=== PATIENT | male | born 1960 | race Caucasian/White ===

== ENCOUNTER 2019-11-19 14:14 | Outpatient (CLI) | payer BC, SELFPAY ==
--- NOTE | 2019-11-22 11:30 | WPDPFTINT ---
PFT Interpretation PFT Interpretation: This PFT met all criteria for ATS standards and reproducibility FEV/FVC post bronchodilator 81% of predicted FEV1 130% FVC 115% TLC 133% or 8.87 liters RV 148% RV/TLC 39% DLCO 113% when adjusted for alveolar volume but not adjusted for hemoglobin Flow volume loops were normal Impression: Hyperinflation and borderline air trapping. This pattern may correlate with Emphysema or other lung disease which maybe mild. Clinical correlation is advised.
== END 2019-11-19 14:15 | disposition home or self-care (01) ==
PROVIDERS: PCP Internal Medicine; Visit Provider Internal Medicine
DX: Z87.891 Personal history of nicotine dependence (principal); R91.8 Other nonspecific abnormal finding of lung field
CPT/HCPCS: 94060; 94726; 94729

== ENCOUNTER → 2020-06-15 12:19 | Outpatient (CLI) | payer BC, SELFPAY ==
--- NOTE | ~2020-06-15 | MR_ITS ---
EXAMINATION: MR shoulder RT wo con DATE: 06/15/2020 12:57 INDICATION: Right shoulder pain TECHNIQUE: Magnetic resonance imaging (MRI) of the right shoulder was performed without intravenous c ontrast. Sequences included axial PD-weighted FS FSE, coronal oblique PD-weighted FS FSE, coronal obl ique T2-weighted FS FSE, sagittal PD-weighted FS FSE, and sagittal T1-weighted SE. COMPARISON: None. FINDINGS: Coracoacromial arch: The acromion undersurface is curved in morphology (type II). The coracoacromial ligament is normal. M ild acromioclavicular osteoarthritis. Rotator cuff: Mild supraspinatus tendinopathy without discrete tear. The infraspinatus, teres minor and subscapular is tendons are normal. Normal rotator cuff muscle bulk and signal. Biceps tendon, glenoid labrum and glenohumeral cartilage: Mild tendinopathy without discrete tear of the intra-articular long head biceps tendon. There is a te ar of the superior to posterior inferior glenoid labrum with a couple small para labral cyst at the 1 1:00 and 7:00 positions. Linear increased signal at the chondral labral junction of the posterior sup erior glenoid suggesting associated chondral tear versus chondral labral delamination. Nonuniform par tial thickness cartilage loss with chondral surface irregularity along the glenoid and humeral head c onsistent with mild osteoarthritis. There are small marginal osteophytes along the inferomedial aspec t of the humeral head. Fluid: Physiologic amount fluid in the glenohumeral joint space with mild synovitis versus debris at the axi llary recess. No loose osteochondral bodies. Disproportionate small amount of fluid in the long head biceps tendon sheath consistent with mild tenosynovitis. Abnormal increased fluid signal in the subac romial/subdeltoid bursa to suggest bursitis. Bones: Bone alignment is normal. No fracture or pathologic marrow replacing process. Mild cystic change at t he greater tuberosity. IMPRESSION: 1. Mild glenohumeral osteoarthritis with tear of the superior to posterior inferior glenoid labrum. 2. Mild supraspinatus tendinopathy without discrete tear. 3. Mild bicipital tenosynovitis and mild tendinopathy of the intra-articular long head biceps tendon without discrete tear. 4. Mild acromioclavicular osteoarthritis. Reviewed, dictated and finalized at location A. IMPRESSION: 1. Mild glenohumeral osteoarthritis with tear of the superior to posterior infe rior glenoid labrum. 2. Mild supraspinatus tendinopathy without discrete tear. 3. Mild bicipital tenosynovitis and mild tendinopathy of the intra-articular lo ng head biceps tendon without discrete tear. 4. Mild acromioclavicular osteoarthritis.
== END ==
PROVIDERS: PCP Internal Medicine; Visit Provider Orthopaedic Surgery
DX: M19.011 Primary osteoarthritis, right shoulder (principal); M75.21 Bicipital tendinitis, right shoulder
CPT/HCPCS: 73221

== ENCOUNTER 2021-05-20 08:15 | Outpatient (CLI) | payer BC, SELFPAY ==
--- NOTE | ~2021-05-20 | XR_ITS ---
EXAMINATION: XR UGIAC w barium swallow DATE: 05/20/2021 08:52 INDICATION: Gastroesophageal reflux disease TECHNIQUE: The patient drank thick barium, gas-producing crystals, and thin barium. Fluoroscopy of th e esophagus, stomach, and proximal small bowel were performed. Fluoroscopy exposure time was 2.6 da diomedes. The DAP for this procedure was 21.241 Gycm2. COMPARISON: None. FINDINGS: There is no mass or stricture of the esophagus. Esophageal motility is normal. There is no hiatal hernia. There was no gastroesophageal reflux with provocative maneuvers. The stomach and proxi mal small bowel show normal folding patterns. IMPRESSION: 1. Unremarkable upper GI. Reviewed, dictated and finalized at location A. IMPRESSION: 1. Unremarkable upper GI.
== END 2021-05-20 08:16 | disposition home or self-care (01) ==
PROVIDERS: PCP Internal Medicine; Visit Provider Nurse Practitioner
DX: K21.9 Gastro-esophageal reflux disease without esophagitis (principal)
CPT/HCPCS: 74246

== ENCOUNTER 2021-09-07 09:35 | Outpatient (RCR) | payer BC, SELFPAY ==
[2021-09-07] MEDS: FAMOTIDINE 20 MG TABLET PO (15:59)
[2021-09-07] MEDS: ACETAMINOPHEN 325 MG TABLET 650 MG PO (15:59)
[2021-09-07] MEDS: diphenhydrAMINE HCl CAP 25 MG CAPSULE PO (15:59)
[2021-09-07 16:05] VITALS: BP 145/60; PULSE 60; RESP 20; TEMP 36.9; O2SAT 98
[2021-09-07 17:32] VITALS: BP 122/84
--- NOTE | 2021-09-08 09:58 | PC.NURSE ---
Called Mr Ortiz and he stated he is doing great and has no questions at this time.
== END 2021-09-07 17:00 | disposition home or self-care (01) ==
LOC: AMCINF 09:35
PROVIDERS: PCP Internal Medicine; Visit Provider Internal Medicine Hematology & Oncology
DX: U07.1 COVID-19 (principal); I10 Essential (primary) hypertension
CPT/HCPCS: A9270; M0245; Q0245

== ENCOUNTER 2023-09-29 14:45 | Outpatient (CLI) | payer BC, SELFPAY ==
--- NOTE | 2023-10-06 15:52 | WPDHOLTEREM ---
Holter/Event Monitor Holter/Event Monitor Date of procedure: 09/29/23 Holter/Event Procedure: 48 Hr Holter Monitor Indications: Palpitations Conclusion: 1. 48 hour holter monitor on 09/29/23. 2. Underlying rhythm is sinus rhythm. HR range 47-117 bpm; average HR 68 bpm. 3. There are 43 premature supraventricular complexes. No supraventricular tachycardia. 4. There are 2,130 premature ventricular complexes, 480 ventricular trigeminy. No ventricular tachycardia. 5. No sinoatrial or atrioventricular blocks. No significant pauses greater than 2 seconds. 6. Patient reports symptoms of no energy and heavy heart beats which demonstrate sinus rhythm, HR range 65-84 bpm.
== END 2023-09-29 14:46 | disposition home or self-care (01) ==
PROVIDERS: PCP Nurse Practitioner; Visit Provider Nurse Practitioner
DX: R00.2 Palpitations (principal)
CPT/HCPCS: 93225; 93226

== ENCOUNTER 2023-10-24 09:52 | Outpatient (CLI) | payer BC, SELFPAY ==
--- NOTE | 2023-10-24 11:00 | NEURO_ITS ---
Impression: # Complains of right hand numbness. Not diabetic. ? # Evolving right Carpal Tunnel Syndrome. ? # No ulnar neuropathy. ? # Normal needle/EMG exam. Nerve Conduction Studies Anti Sensory Summary Table Stim Site NR Peak (ms) P-T Amp (?V) Site1 Site2 Delta-P (ms) Dist (cm) Geoff (m/s) Right Median Anti Sensory (2-3nd Digit) Wrist 3.9 38.3 Wrist 2-3nd Digit 3.9 14.0 36 Wrist 3.9 33.7 Wrist 2-3nd Digit 3.9 14.0 36 Right Radial Anti Sensory (Base 1st Digit) Wrist 1.8 13.4 Wrist Base 1st Digit 1.8 0.0 Right Ulnar Anti Sensory (5th Digit) Wrist 2.6 21.6 Wrist 5th Digit 2.6 14.0 54 Motor Summary Table Stim Site NR Onset (ms) O-P Amp (mV) Site1 Site2 Delta-0 (ms) Dist (cm) Geoff (m/s) Right Median Motor (Abd Poll Brev) Wrist 3.9 5.6 Elbow Wrist 4.9 29.0 59 Elbow 8.8 4.9 Right Ulnar Motor (Abd Dig Minimi) Wrist 2.7 6.3 A Elbow Wrist 5.2 30.0 58 A Elbow 7.9 4.9 F Wave Studies NR F-Lat (ms) L-R F-Lat (ms) Right Median (Mrkrs) (Abd Poll Brev) 29.79 Right Ulnar (Mrkrs) (Abd Dig Min) 30.14 EMG Side Muscle Nerve Root Ins Act Fibs Amp Dur Recrt Comment Right 1stDorInt Ulnar C8-T1 Nml Nml Nml Nml Nml Right Ext Indicis Radial (Post Int) C7-8 Nml Nml Nml Nml Nml Right Ext Digitorum Radial (Post Int) C7-8 Nml Nml Nml Nml Nml Right BrachioRad Radial C5-6 Nml Nml Nml Nml Nml Right PronatorTeres Median C6-7 Nml Nml Nml Nml Nml Right Abd Poll Brev Median C8-T1 Nml Nml Nml Nml Nml Right ABD Dig Min Ulnar C8-T1 Nml Nml Nml Nml Nml MTDD
== END 2023-10-24 09:53 | disposition home or self-care (01) ==
LOC: ANHNEURO 09:55
PROVIDERS: PCP Nurse Practitioner; Visit Provider Nurse Practitioner
DX: M79.609 Pain in unspecified limb (principal); G56.01 Carpal tunnel syndrome, right upper limb
CPT/HCPCS: 95886; 95909

== ENCOUNTER 2024-11-18 13:52 | Outpatient (CLI) | payer BC, SELFPAY | END 2024-11-18 13:53 | disposition home or self-care (01) | PROVIDERS: PCP Internal Medicine; Visit Provider Internal Medicine | DX: K21.9 Gastro-esophageal reflux disease without esophagitis (principal) | CPT/HCPCS: 74240 ==

== ENCOUNTER 2024-12-20 00:48 | Day surgery (SDC) | payer OTHER, SELFPAY ==
[2024-12-12 14:46] VITALS: BMI 33.2
--- OUTSIDE RECORDS SUMMARY | 2024-12-20 00:52 | XMS_ITS ---
Author Organization [facility] Address [address] [facility] [address] [place] [address] Care Team Providers Care Pastry Baker Name Role Phone Carlos Ibarra DO Primary Care Provider Geovanny Radford Unavailable [phone] Allergies Allergen (clinical drug ingredient) Drug/Non Drug Allergy documented on EMR Reaction Allergy Type Onset Date Status predniSONE Unknown Drug Allergy 01/31/2024 Activ e Results Component Value Reference Range Notes UDT Reviewed date:04/29/2024 10:06:51 AM Interpretation: Performing Lab: Notes/Report: THC N 0 - 50 ng/ml Cocaine N 0 - 300 ng/ml Amphetamine N 0 - 1000 ng/ml Buprenorphine (BUP) N 0 - 10 ng/ml Secobarbital (Bar) N 0 - 300 ng/ml Oxazepam (BZO) N 0 - 300 ng/ml 6-anvtkidzpy-0,4-dfzrguyb-5,3-diphenylpyrrolidine (MARNI P) N 0 - 300 ng/ml Methamphetamine (MET) N 0 - 1000 ng/ml Methylenedioxymethamphetamine (MDMA) N 0 - 500 ng/ml Morphine (MOP 300/CSU0354) N 0 - 300 ng/ml Methadone (MTD) N 0 - 300 ng/ml Phencyclidine (PCP) N 0 - 25 ng/ml Nortriptyline (TCA) N 0 - 1000 ng/ml Oxycodone N 0 - 300 ng/ml x N 0 - 300 ng/ml REASON FOR VISIT follow up visit, medication evaluation Medications Medication SIG (Take, Route, Frequency, Duration) Notes Start Date End Date Status Rosuvastatin Calcium 20 MG TAKE 1 TABLET BY MOUTH EVERYDAY AT BEDTIME Oral for 90 Days Active Ezetimibe 10 MG TAKE 1 TABLET (10 MG ) BY MOUTH DAILY. Oral for 90 Days Active Nystatin-Triamcinolone 077451-1.1 UNIT/GM APPLY TO AFFECTED AREA TWICE A DAY NEEDED External for 15 Days Active amLODIPine Besylate 10 MG TAKE 1 TABLET BY MOUTH EVERY DAY Oral for 90 Days Active carBAMazepine ER 100 MG 1 tablet Orally once a day for 90 days Total dose 300 mg daily 04/29/2024 Active carBAMazepine ER 200 MG 1 tablet every night Orally once a day for 90 days Total dose 300 mg daily Active Social History Tobacco Use: Social History Observation Description Date Details (start date - stop date) Never Smoker NA - NA Sex Assigned At : Social History Observation Description Sex Assigned At Male Tobacco Control (Standard) Question Answer Notes Tobacco use: Nonsmoker Problems Problem Type SNOMED Code ICD Code Onset Dates Problem Status W/U Status Risk Notes Problem 78217520 Chronic fatigue (R53.82) Active confirmed Vital Signs Blood pressure systolic 161 mm Hg 04/29/20 24 Blood pressure diastolic 95 mm Hg 024 Heart Rate 56 /min 04/29/2024 Height 70 in 04/29/2024 Weight 233.2 lbs 04/29/2024 BMI 33.46 kg/m2 04/29/2024 Height-cm 177.8 cm 04/29/2024 Weight-kg 105.78 kg 04/29/2024 Encounters Encounter Location Date Provider Diagnosis [facility] [address] [address] 04/29/2024 Geovanny Gutierrez Bipolar disorder, currently in remission, most recent episode unspecified F31.70 and Chronic fatigue R53.82 Assessments Encounter Date Diagnosis (ICD Code) Assessment Notes Treatment Notes Treatment Clinical Notes Section Notes 04/29/2024 Bipolar disorder, currently in remission, most recent episode unspecified (ICD-10 - F31.70) Bipolar Disorder - Assessment: Bipolar disorder is currently in remission. - Plan: - Continue carbamazepine ER 200 mg nightly. - Re-send prescription for carbamazepine ER 100 mg once a day; patient may choose to add the extra 100 mg at night. - Schedule a follow-up appointment in three months. Daytime Sleepiness and Low Energy - Assessment: Patient reports daytime sleepiness and low energy despite regular exercise. - Plan: - Encourage patient to structure their day and engage in regular exercise. - Recommend discussing chronic fatigue with primary care physician. - Consider modafinil as a potential treatment option for motivation and energy if lifestyle changes are insufficient. Sleep Apnea - Assessment: Patient has a previous diagnosis of sleep apnea but discontinued CPAP use years ago. does not report observing gasping for breath during sleep. - Plan: - Encourage patient to consult with primary care physician or sleep specialist for re-evaluation and potential treatment options. - If needed, Dr. Gutierrez can prescribe modafinil for daytime sleepiness related to sleep apnea. Anxiety - Assessment: Patient reports anxiety related to lack of daily structure and political concerns. - Plan: - Encourage patient to implement lifestyle changes, such as structuring their day and engaging in hobbies or activities. - Re-evaluate anxiety levels during the three-month follow-up appointment. 04/29/2024 Chronic fatigue (ICD-10 - R53.82) Bipolar Disorder - Assessment: Bipolar disorder is currently in remission. - Plan: - Continue carbamazepine ER 200 mg nightly. - Re-send prescription for carbamazepine ER 100 mg once a day; patient may choose to add the extra 100 mg at night. - Schedule a follow-up appointment in three months. Daytime Sleepiness and Low Energy - Assessment: Patient reports daytime sleepiness and low energy despite regular exercise. - Plan: - Encourage patient to structure their day and engage in regular exercise. - Recommend discussing chronic fatigue with primary care physician. - Consider modafinil as a potential treatment option for motivation and energy if lifestyle changes are insufficient. Sleep Apnea - Assessment: Patient has a previous diagnosis of sleep apnea but discontinued CPAP use years ago. does not report observing gasping for breath during sleep. - Plan: - Encourage patient to consult with primary care physician or sleep specialist for re-evaluation and potential treatment options. - If needed, Dr. Gutierrez can prescribe modafinil for daytime sleepiness related to sleep apnea. Anxiety - Assessment: Patient reports anxiety related to lack of daily structure and political concerns. - Plan: - Encourage patient to implement lifestyle changes, such as structuring their day and engaging in hobbies or activities. - Re-evaluate anxiety levels during the three-month follow-up appointment. 04/29/2024 Other Learning About Depression Screening material was printed Bipolar Disorder - Assessment: Bipolar disorder is currently in remission. - Plan: - Continue carbamazepine ER 200 mg nightly. - Re-send prescription for carbamazepine ER 100 mg once a day; patient may choose to add the extra 100 mg at night. - Schedule a follow-up appointment in three months. Daytime Sleepiness and Low Energy - Assessment: Patient reports daytime sleepiness and low energy despite regular exercise. - Plan: - Encourage patient to structure their day and engage in regular exercise. - Recommend discussing chronic fatigue with primary care physician. - Consider modafinil as a potential treatment option for motivation and energy if lifestyle changes are insufficient. Sleep Apnea - Assessment: Patient has a previous diagnosis of sleep apnea but discontinued CPAP use years ago. does not report observing gasping for breath during sleep. - Plan: - Encourage patient to consult with primary care physician or sleep specialist for re-evaluation and potential treatment options. - If needed, Dr. Gutierrez can prescribe modafinil for daytime sleepiness related to sleep apnea. Anxiety - Assessment: Patient reports anxiety related to lack of daily structure and political concerns. - Plan: - Encourage patient to implement lifestyle changes, such as structuring their day and engaging in hobbies or activities. - Re-evaluate anxiety levels during the three-month follow-up appointment. Plan Of Treatment Medication Medication Name Sig Start Date Stop Date Notes carBAMazepine ER 100 MG 1 tablet Orally once a day for 90 days 04/29/2024 carBAMazepine ER 200 MG 1 tablet every n ight Orally once a day for 90 days Treatment Notes Assessment Notes Other Learning About Depre ssion Screening material was printed Next Appt Details Follow Up: 3 Months, Reason: Provider Name:Geovanny Gutierrez , 03/24/2025 08:30:00 AM, [address] [facility] [address] [facility] [address], [facility] [address], [place], [address], Progress Notes * BEATRIS WALSHDOB: 0 (63 yo M)Acc No.[id number]:04/29/2024 Patient: BEATRIS ECHOLS Provider: Shama GUTIERREZ MD :1960 A ge:63 Y S ex:Male Date:04/29/2024 Address: [address], [address] [id number] Subjective: * Chief Complaints: * F ollow up visit, medication evaluation * HPI: D epression screening: Chief Complaint: Beatris, a 63-year-old retired male with a history of bipolar disorder, reports concerns about possibly experiencing hypomania. He notes changes in his medication regimen, excessive daytime sleepiness, and a lack of motivation and productivity. He denies feeling depressed currently. The note is transcribed using speech recognition software. It is a reflection of a visit with the patient. It might have some inaccuracy, including medication names and transcribing errors, though efforts have been made to correct them. Medication and Symptoms: Beatris has been taking Tegretol, 200 mg at night, but recently ran out of his 100 mg morning dose and has only been taking the 200 mg dose. He expresses concerns about excessive daytime sleepiness, sleeping for two hours in the afternoons, and experiencing low motivation and productivity. Despite these symptoms, he does not believe he is depressed at this time. Sleep Difficulties: He has a history of sleep apnea and previously used a CPAP machine, which is now broken. His observes that he snores but does not gasp for breath. Beatris wakes up early and feels rested, yet he still encounters daytime sleepiness and low energy levels. Physical Activity and Daily Routine: Beatris engages in running two miles every couple of days but feels tired afterward. He acknowledges the need for additional forms of exercise on his off days. He struggles with planning and structuring his day, finding it stressful and having too much time on his hands, though he can catch up on tasks quickly when necessary. Social and Environmental Factors: Beatris is disturbed by the current political climate, specifically mentioning concerns about Trump derangement syndrome and the potential outcome of the upcoming election. However, he notes an improvement in his feelings about the situation over the past three weeks. He also expresses a dislike for taking unnecessary medications due to potential side effects. PHQ-9 L ittle interest or pleasure in doing things S everal days, F eeling down, depressed, or hopeless N ot at all, T rouble falling or staying asleep, or sleeping too much S everal days, F eeling tired or having little energy N early every day, P oor appetite or overeating S everal days, F eeling bad about yourself or that you are a failure, or have let yourself or your family down S everal days, T rouble concentrating on things, such as reading the newspaper or watching television S everal ,?Moving or speaking so slowly that other people could have noticed; or the opposite, being so fidgety or restless that you have been moving around a lot more than usual N ot at all, T houghts that you would be better off or of hurting yourself in some way N ot at all, T otal Score 8 , I nterpretation M ild Depression. I ntervention D epression Screening Findings P ositve, F ollow-Up for Depression M anagement of mental health treatment, S uicide Risk Assessment Performed , A dditional Evaluation for Depression Psychiatric interview and evaluation, N josé of the standardized tool used for adult depression screening: P atient Health Questionnaire (PHQ-9). D epression Screening: LINNETTE-7 (2018 Edition) F eeling nervous, anxious, or on edge?Several days, N ot being able to stop or control worrying S everal days, W orrying too much about different things S everal days, T rouble relaxing S everal days, B eing so restless that it is hard to sit still N ot at all, B ecoming easily annoyed or irritable N ot at all, F eeling afraid as if something awful might happen N ot at all. M anic episode: Manic N o past history of Sarah. S chizophrenia/Schizophreniform/Schizoaffective disorder/Brief reactive psychosis: Psychotic symptoms N o past history of psychosis. P sychotherapy Information: Psychotherapy History C urrently in therapy N o. H istory of Presenting Problem: Pt was seen today and Urine drug screen was done. * ROS: P sychiatric: Delusions d enies. S ee HPI. * Medical History: * Surgical History: * Hospitalization/Major Diagno stic Procedure: * Family History: F ather: . M other: . B rother: Alcohol abuse . S on: Bipolar disorder . 2 brother(s) , 2 sister(s) . 1 son(s) . . * Social History: T obacco Use: T obacco Control (Standard) T obacco use: N onsmoker. M igrated Social History: M igrated Social History: Alcohol Intake: None 01/31/2024,Tobacco Years: Former smoker 01/31/2024. D rug/Alcohol: D o you smoke marijuana?: Denies. Do you drink alcohol?: No. * Medications: T akingcarBAMazepine ER 200 MG Tablet Extended Release 12 Hour 1 tablet every night Orally once a day amLODIPine Besylate 10 MG Tablet TAKE 1 TABLET BY MOUTH EVERY DAY Oral Ezetimibe 10 MG Tablet TAKE 1 TABLET (10 MG) BY MOUTH DAILY. Oral Nystatin-Triamcinolone 299954-6.1 UNIT/GM Cream APPLY TO AFFECTED AREA TWICE A DAY NEEDED External Rosuvastatin Calcium 20 MG Tablet TAKE 1 TABLET BY MOUTH EVERYDAY AT BEDTIME Oral Taking carBAMazepine ER 200 MG Tablet Extended Release 12 Hour 1 tablet every night Orally once a day Taking amLODIPine Besylate 10 MG Tablet TAKE 1 TABLET BY MOUTH EVERY DAY Oral Taking Ezetimibe 10 MG Tablet TAKE 1 TABLET (10 MG) BY MOUTH DAILY. Oral Taking Nystatin-Triamcinolone 371618-6.1 UNIT/GM Cream APPLY TO AFFECTED AREA TWICE A DAY NEEDED External Taking Rosuvastatin Calcium 20 MG Tablet TAKE 1 TABLET BY MOUTH EVERYDAY AT BEDTIME Oral DiscontinuedbuPROPion HCl ER (XL) 150 MG Tablet Extended Release 24 Hour TAKE 1 TABLET BY MOUTH EVERY DAY IN THE MORNING Oral Medication List reviewed and reconciled with the patientDiscontinued buPROPion HCl ER (XL) 150 MG Tablet Extended Release 24 Hour TAKE 1 TABLET BY MOUTH EVERY DAY IN THE MORNING Oral Medication List reviewed and reconciled with the patient * Allergies: p redniSONE: Allergy - Onset Date 01/31/2024no[Allergies Verified] Objective: * Vitals: B P:161/95mm Hg, HR:56/min, Wt:233.2lbs, Wt-k.78 kg, Ht: 70 in, Ht-cm: 177.8 cm, BMI:33.46Index, Body Surface Area: 2.28. * Examination: P sychiatry: Appearance: w ell-groomed. Abnormal body movements: n one. Affect / mood: a ppropriate, full range. Attention: g ood. Attitude: c ooperative. Homicidal ideation: n one. Suicidal ideation: n one. Memory status: d id not assess. Degree of awareness of surroundings: w ithin normal limits.? Delusions: n o. Hallucinations: n o. Impulse control: n ot assessed. Insight: g ood. Intellectual functioning: a verage. Calculation - Intellectual function: n ot tested. Literacy - Intellectual function: n ot tested. Comprehension - Intellectual function: a verage. Abstract / proverb - Intellectual function: n ot tested.? Similarities / opposites - Intellectual function: n ot tested. Judgement: n ot assessed. Orientation: a wake, alert and oriented x 3. Perceptual disorders: n o perceptual disorder noted. Psychomotor activity: w ithin normal range. Speech / language: a ppropriate pitch/modulation. Thought content: a ppropriate. Thought process: i ntact. G eneral Examination: M ental Status Examination: Patient reports excessive daytime sleepiness and low energy. Describes lack of motivation and productivity, feeling like time is wasted. No current feelings of depression. Difficulty with planning and managing free time. Reports concerns about political situation, mentions Trump derangement syndrome . Physical Examination: History of sleep apnea, previously diagnosed and managed with CPAP, which is no longer in use. Reports snoring but no gasping for breath. Engages in occasional exercise, running two miles every couple of days, which results in tiredness. Wakes up early and feels fairly well rested in the morning. Assessment: * Assessment: 1. B ipolar disorder, currently in remission, most recent episode unspecified - F31.70 (Primary) 2 . C hronic fatigue - R53.82 Bipolar Disorder - Assessment: Bipolar disorder is currently in remission. - Plan: - Continue carbamazepine ER 200 mg nightly. - Re-send prescription for carbamazepine ER 100 mg once a day; patient may choose to add the extra 100 mg at night. - Schedule a follow-up appointment in three months. Daytime Sleepiness and Low Energy - Assessment: Patient reports daytime sleepiness and low energy despite regular exercise. - Plan: - Encourage patient to structure their day and engage in regular exercise. - Recommend discussing chronic fatigue with primary care physician. - Consider modafinil as a potential treatment option for motivation and energy if lifestyle changes are insufficient. Sleep Apnea - Assessment: Patient has a previous diagnosis of sleep apnea but discontinued CPAP use years ago. does not report observing gasping for breath during sleep. - Plan: - Encourage patient to consult with primary care physician or sleep specialist for re-evaluation and potential treatment options. - If needed, Dr. Gutierrez can prescribe modafinil for daytime sleepiness related to sleep apnea. Anxiety - Assessment: Patient reports anxiety related to lack of daily structure and political concerns. - Plan: - Encourage patient to implement lifestyle changes, such as structuring their day and engaging in hobbies or activities. - Re-evaluate anxiety levels during the three-month follow-up appointment. Plan: * Treatment: 2. O thers Notes: Learning About Depression Screening material was printed * Labs: * L ab: UDT (Collection Date & Time - 04/29/2024) Value Reference Range T HC N 0 - 50 ng/ml * C ocaine N 0 - 300 ng/ml * A mphetamine N 0 - 1000 ng/ml * B uprenorphine (BUP) N 0 - 10 ng/ml * S ecobarbital (Bar) N 0 - 300 ng/ml * O xazepam (BZO) N 0 - 300 ng/ml * 2 -ethylidene-1,5-lkzrbjfh-9,3-diphenylpyrrolidine (EDDP) N 0 - 300 ng/ml * M ethamphetamine (MET) N 0 - 1000 ng/ml * M ethylenedioxymethamphetamine (MDMA) N 0 - 500 ng/ml * M orphine (MOP 300/[id number]) N 0 - 300 ng/ml * M ethadone (MTD) N 0 - 300 ng/ml * P hencyclidine (PCP) N 0 - 25 ng/ml * P ropoxyphene (PPX) N 0 - 300 ng/ml * N ortriptyline (TCA) N 0 - 1000 ng/ml * O xycodone N 0 - 300 ng/ml * Procedure Codes: 9 6127 BEHAV ASSMT W/SCORE & DOCD/STAND [id number] DRUG TST PRSMV READ INSTRMNT ASSTD DIR OPT OBS * Preventive Medicine: Counseling: B P Management: F IRST HYPERTENSIVE BP READING FOLLOW-UP PLAN: _ ___, R EFERRAL TO ALTERNATIVE / PRIMARY CARE PROVIDER: R eferral to general physician ____. * Follow Up: 3 Months * Billing Information: * Visit Code: 28354 OFFICE OUTPATIENT VISIT 25 MINUTES DETAILED HISTORY AND EXAM/MODERATE MEDICAL DECISION MAKING. * Procedure Codes: 85741 BEHAV ASSMT W/SCORE & DOCD/STAND INSTRUMENT. 39378 DRUG TST PRSMV READ INSTRMNT ASSTD DIR OPT OBS. * Sign off status: Completed true * Provider: Shama GUTIERREZ MD Date: 0 04/29/2024 Generated for Anita sorensen/Warren/Narciso on: 0 12/20/2024 12:51 AM CDT History and Physical Notes * HPI (History of Present Illness) Category Sub-Category Detail Notes Category Not es Manic episode Manic No past history of Sarah Schizophrenia/Schiz ophreniform/Schizoa ffective disorder/Brief reactive psychosis Psychotic symptoms No past history of psychosis History of Presenting Problem Pt was seen today and Urine drug screen was done Depression screening PHQ-9 Little interest or pleasure in doing things: Several days Feeling down, depressed, or hopeless: No t at all Trouble falling or staying asleep, or sl eeping too much: Several days Feeling tired or having little energy: N early every day Poor appetite or overeating: Several day s Feeling bad about yourself o r that you are a failure, or have let yourself or your family down: Several days Trouble concentrating on thi ngs, such as reading the newspaper or watching television: Several days Moving or speaking so slowly that other people could have noticed; or the opposite, being so fidgety or restless that you have been moving around a lot more than usual: Not at all Thoughts that you would be b tiffany off or of hurting yourself in some way: Not at all Total Score: 8 Interpretation: Mild Depression Intervention Depression Screening Findings: P ositve Follow-Up for Depression: Management of mental health treatment Suicide Risk Assessment Performed: Additional Evaluation for De pression: Psychiatric interview and evaluation Name of the standardized too l used for adult depression screening:: Patient Health Questionnaire (PHQ-9) Depression Screening LINNETTE-7 (2018 Edition) Feelin g nervous, anxious, or on edge: Several days Not being able to stop or control worryi ng: Several days Worrying too much about different things : Several days Trouble relaxing: Several days Being so restless that it is hard to sit still: Not at all Becoming easily annoyed or irritable: No t at all Feeling afraid as if something awful mirna ht happen: Not at all Psychotherapy Information Psychotherapy History Currently in therapy: No Examination Category Sub-Category Detail Notes Category Not es Psychiatry Appearance: well-groomed Attitude: cooperative Psychomotor activity: within normal rang e Abnormal body movements: none Attention: good Degree of awareness of surroundings: wit hin normal limits Orientation: awake, alert and ave ented x 3 Affect / mood: appropriate, full ra nge Speech / language: appropriate pitch/mo dulation Insight: good Judgement: not assessed Thought process: intact Thought content: appropriate Perceptual disorders: no perceptual diso rder noted Suicidal ideation: none Homicidal ideation: none Intellectual functioning: average Impulse control: not assessed Memory status: did not assess Delusions: no Hallucinations: no Calculation - Intellectual function: not tested Literacy - Intellectual function: not te sted Comprehension - Intellectual function: a verage Abstract / proverb - Intellectual functi on: not tested Similarities / opposites - Intellectual function: not tested General Examination Mental Status Examination: Patient reports excessive daytime sleepiness and low energy. Describes lack of motivation and productivity, feeling like time is wasted. No current feelings of depression. Difficulty with planning and managing free time. Reports concerns about political situation, mentions Trump derangement syndrome . Physical Examination: History of sleep apnea, previously diagnosed and managed with CPAP, which is no longer in use. Reports snoring but no gasping for breath. Engages in occasional exercise, running two miles every couple of days, which results in tiredness. Wakes up early and feels fairly well rested in the morning.
--- OUTSIDE RECORDS SUMMARY | 2024-12-20 00:52 | XMS_ITS | Clinical Summary ---
Author Organization [facility] Address [address] 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 Affiliates and Associated Physician Practices is amultiple site organization consisting of ambulatory clinics and hospital sitesin [place], [place], [place] and [place]. This disclosure is being madepursuant to the Care Everywhere program and may not contain all information available regarding this patient. Last updated 18.[facility] Social History Tobacco Use Types Packs/Day Years Used Date Smoking Tobacco: Never Assessed Sex and Gender Information Value Date Recorded Sex Assigned at Not on file Gender Identity Not on file Sexual Orientation Not on file Plan of Treatment Health Maintenance Due Date Last Done Comments COLOGUARD (AGES 45-75) - COL ON CA SCREENING 1960 COLON MONITORING 1960 COLONOSCOPY - COLON CA SCREENING 1960 CT COLONOGRAPHY - COLON CA SCREENING 1960 Colorectal Cancer Screening 1960 FIT - COLON CA SCREENING 1960 FLEX SIG - COLON CA SCREENING 1960 LIPID TESTING 1960 HIV SCREENING 1975 HEPATITIS C SCREENING 09/12/1978 DTAP/TDAP/TD VACCINES (1 - Tdap) 1979 PNEUMOCOCCAL VACCINE 50+ (1 of 1 - PCV) 2010 ZOSTER VACCINE (1 of 2) 2010 COVID-19 VACCINE ( - 2023-2 5 season) 2024 INFLUENZA VACCINE (#1) 2024 DEPRESSION SCREENING 09/18/2024 Respiratory Syncytial Virus (RSV) Vaccine Pt: or over 60 yrs (1 - 1-dose 75+ series) 2035 HEPATITIS B VACCINE Aged Out No longe r eligible based on patient's age to complete this topic HIB VACCINE Aged Out No longer eligi ble based on patient's age to complete this topic HPV VACCINE Aged Out No longer eligi ble based on patient's age to complete this topic MENINGOCOCCAL (Group B) VACC INE SHARED DECISION-MAKING Aged Out No longer eligibl e based on patient's age to complete this topic MENINGOCOCCAL GROUPS A/C/Y/W VACCINE Aged Out No longer eligible b ased on patient's age to complete this topic PNEUMOCOCCAL VACCINE Aged Out No long er eligible based on patient's age to complete this topic
--- OUTSIDE RECORDS SUMMARY | 2024-12-20 00:52 | XMS_ITS | Patient Health Record ---
Author Organization [facility] [employer] Address [address] [place] [address] Care Team Providers Care Service Car Driver Name Role Phone Stacey Carlos Primary Care Provider Geovanny Radford Unavailable [phone] Migration, Provider Unavailable Unavailable Allergies Allergen (clinical drug ingredient) Drug/Non Drug [...] Oxazepam (BZO) N 0 - 300 ng/ml 4-karswsuznd-3,6-cwxrdaco-4,3-diphenylpyrrolidine (MARNI P) N 0 - 300 ng/ml Methamphetamine (MET) N 0 - 1000 ng/ml Methylenedioxymethamphetamine (MDMA) N 0 - 500 ng/ml Morphine (MOP 300/OAS8700) N 0 - 300 ng/ml Methadone (MTD) N 0 - 300 ng/ml Phencyclidine (PCP) N 0 - 25 ng/ml Nortriptyline (TCA) N 0 - 1000 ng/ml Oxycodone N 0 - 300 ng/ml x N 0 - 300 ng/ml Reason For Referral No Information Medications Medication SIG (Take, Route, Frequency, Duration) Notes Start Date End Date Status amLODIPine Besylate 10 MG TAKE 1 TABLET BY MOUTH EVERY DAY Oral for 90 Days Activ e Ezetimibe 10 MG TAKE 1 TABLET (10 MG ) BY MOUTH DAILY. Oral for 90 Days Active carBAMazepine ER 100 MG 1 tablet Orally once a day for 90 days Total dose 300 mg daily Active QUEtiapine Fumarate 25 MG 0.5 tablet genie ry night Oral Once a day for 30 days Active carBAMazepine ER 200 MG 1 tablet every night Orally once a day for 90 days Total dose 300 mg daily Active Social History Tobacco Use: Social History Observation Description Date Details (start date - stop date) Former Smoker NA - NA Sex Assigned At : Social History Observation Description Sex Assigned At Male Tobacco Control (Standard) Question Answer Notes Tobacco use: Former smoker Problems Problem Type SNOMED Code ICD Code Onset Dates Problem Status W/U Status Risk Notes Problem Bipolar I disorder, most recent episode mixed, in remission (67032193) Bipolar disorder, currently in remission, most recent episode unspecified (F31.70) Active confirmed Problem 42914902 Essential (primary) hypertension (I10) Active confirmed Problem Vitamin D deficiency (64126271) Vitamin D deficiency (E55.9) Active confirmed Problem 38445996 Chronic fatigue (R53.82) Active confirmed Problem Vitamin deficiency (46381462) Vitamin deficiency (E56.9) Active confirmed Vital Signs Heart Rate 54 /min 10/30/2024 Height-cm 177.8 cm 10/30/2024 Blood pressure diastolic 84 mm Hg 10/30/2024 Weight-kg 106.6 kg 10/30/2024 Height 70 in 10/30/2024 Blood pressure systolic 127 mm Hg 10/30/2024 Weight 235 lbs 10/30/2024 BMI 33.72 kg/m2 10/30/2024 Encounters Encounter Location Date Provider Diagnosis [facility] [address] [place] [address] 01/31/2024 Geovanny Petrona Bipolar disorder, currently in remission, most recent episode unspecified F31.70 and Obstructive sleep apnea (adult) (pediatric) G47.33 [facility] [address] [place] [address] 04/29/2024 Geovanny Petrona Bipolar disorder, currently in remission, most recent episode unspecified F31.70 and Chronic fatigue R53.82 [facility] [address] [place] [address] 07/31/2024 Geovanny Petrona Bipolar disorder, currently in remission, most recent episode unspecified F31.70 ; Chronic fatigue R53.82 and Essential (primary) hypertension I10 [facility] [employer] [facility] [address] [place] [address] 10/30/2024 Geovannywes Russ Bipolar disorder, currently in remission, most recent episode unspecified F31.70 ; Vitamin D deficiency E55.9 ; Vitamin deficiency E56.9 ; Chronic fatigue R53.82 and Essential (primary) hypertension I10 [facility] [employer] [facility] [address] [facility] [address] [place] [address] 02/03/2024 Provider Migration [facility] [employer] [facility] [address] [facility] [address] [place] [address] 02/04/2024 Provider Migration [facility] [employer] [facility] [address] [facility] [address] [facility] [address] [place] [address] 02/20/2024 Geovanny Smallwoodam [facility] [employer] [facility] [address] [facility] [address] [facility] [address] [place] [address] 02/28/2024 Geovanny Russ Bipolar disorder, currently in remission, most recent episode unspecified F31.70 Assessments Encounter Date Diagnosis (ICD Code) Assessment Notes Treatment Notes Treatment Clinical Notes Section Notes 02/28/2024 Bipolar disorder, currently in remission, most recent episode unspecified (ICD-10 - F31.70) 04/29/2024 Bipolar disorder, currently in remission, most [...] potential treatment options. - If needed, Dr. Russ can prescribe modafinil for daytime sleepiness related [...] potential treatment options. - If needed, Dr. Russ can prescribe modafinil for daytime sleepiness related to sleep apnea. Anxiety - Assessment: Patient reports anxiety related to lack of daily structure and political concerns. - Plan: - Encourage patient to implement lifestyle changes, such as structuring their day and engaging in hobbies or activities. - Re-evaluate anxiety levels during the three-month follow-up appointment. 07/31/2024 Bipolar disorder, currently in remission, most recent episode unspecified (ICD-10 - F31.70) Bipolar Disorder - Assessment: Patient reported a brief period of increased energy and difficulty sleeping last week, which they self-managed with Seroquel (quetiapine) for three nights. Currently stable and not experiencing manic or depressive symptoms. Patient attributes the recent episode to the time of year, mentioning the solstice and time change as potential triggers. - Plan: - Continue with current carbamazepine 300 mg regimen. - Prescribe quetiapine 25 mg tablets, one tablet as needed, with 15 tablets and a refill for PRN use. - Schedule a follow-up appointment in three months or as needed. High Blood Pressure - Assessment: Patient reported missing their blood pressure medication (amlodipine) today, resulting in elevated blood pressure and feeling amped up. - Plan: - Patient to resume taking amlodipine as prescribed. - Encourage patient to adhere to medication regimen and monitor blood pressure regularly. High Cholesterol - Assessment: Patient is currently on ezetimibe for high cholesterol management. Patient mentioned not wanting to take statins. - Plan: - Continue with current ezetimibe regimen. - Encourage patient to maintain a healthy diet and exercise routine. Family Support and Stress Management - Assessment: Patient's son, who also has bipolar disorder, is currently in a rehab facility and on Zyprexa and Depakote. Patient is aware of their son's situation and is in contact with him. Patient's son had stopped taking medications for a few days in June, leading to a manic episode. - Plan: - Encourage patient to maintain open communication with their son and seek support from mental health professionals if needed. - Recommend stress management techniques and self-care practices to maintain emotional well-being. Medication Refill and Management - Assessment: Patient experienced an issue with carbamazepine prescription at [facility] but has since resolved it. - Plan: - Ensure carbamazepine prescription is sent again to the pharmacy for patient's convenience. - Instruct patient to discard medications and refill new prescriptions as needed. Follow-up - Plan: - Schedule next appointment in three months, with the option to come in earlier if needed. - Inform patient about the walk-in clinic option, but advise to contact the doctor first for accommodation. 01/31/2024 Bipolar disorder, currently in remission, most recent episode unspecified (ICD-10 - F31.70) 01/31/2024 Obstructive sleep apnea (adult) (pediatric) (ICD-10 - G47.33) 10/30/2024 Bipolar disorder, currently in remission, most recent episode unspecified (ICD-10 - F31.70) 10/30/2024 Vitamin D deficiency (ICD-10 - E55.9) 10/30/2024 Vitamin deficiency (ICD-10 - E56.9) 07/31/2024 Chronic fatigue (ICD-10 - R53.82) Bipolar Disorder - Assessment: Patient reported a brief period of increased energy and difficulty sleeping last week, which they self-managed with Seroquel (quetiapine) for three nights. Currently stable and not experiencing manic or depressive symptoms. Patient attributes the recent episode to the time of year, mentioning the solstice and time change as potential triggers. - Plan: - Continue with current carbamazepine 300 mg regimen. - Prescribe quetiapine 25 mg tablets, one tablet as needed, with 15 tablets and a refill for PRN use. - Schedule a follow-up appointment in three months or as needed. High Blood Pressure - Assessment: Patient reported missing their blood pressure medication (amlodipine) today, resulting in elevated blood pressure and feeling amped up. - Plan: - Patient to resume taking amlodipine as prescribed. - Encourage patient to adhere to medication regimen and monitor blood pressure regularly. High Cholesterol - Assessment: Patient is currently on ezetimibe for high cholesterol management. Patient mentioned not wanting to take statins. - Plan: - Continue with current ezetimibe regimen. - Encourage patient to maintain a healthy diet and exercise routine. Family Support and Stress Management - Assessment: Patient's son, who also has bipolar disorder, is currently in a rehab facility and on Zyprexa and Depakote. Patient is aware of their son's situation and is in contact with him. Patient's son had stopped taking medications for a few days in June, leading to a manic episode. - Plan: - Encourage patient to maintain open communication with their son and seek support from mental health professionals if needed. - Recommend stress management techniques and self-care practices to maintain emotional well-being. Medication Refill and Management - Assessment: Patient experienced an issue with carbamazepine prescription at [facility] but has since resolved it. - Plan: - Ensure carbamazepine prescription is sent again to the pharmacy for patient's convenience. - Instruct patient to discard medications and refill new prescriptions as needed. Follow-up - Plan: - Schedule next appointment in three months, with the option to come in earlier if needed. - Inform patient about the walk-in clinic option, but advise to contact the doctor first for accommodation. 10/30/2024 Chronic fatigue (ICD-10 - R53.82) 10/30/2024 Essential (primary) hypertension (ICD-10 - I10) 07/31/2024 Essential (primary) hypertension (ICD-10 - I10) Bipolar Disorder - Assessment: Patient reported a brief period of increased energy and difficulty sleeping last week, which they self-managed with Seroquel (quetiapine) for three nights. Currently stable and not experiencing manic or depressive symptoms. Patient attributes the recent episode to the time of year, mentioning the solstice and time change as potential triggers. - Plan: - Continue with current carbamazepine 300 mg regimen. - Prescribe quetiapine 25 mg tablets, one tablet as needed, with 15 tablets and a refill for PRN use. - Schedule a follow-up appointment in three months or as needed. High Blood Pressure - Assessment: Patient reported missing their blood pressure medication (amlodipine) today, resulting in elevated blood pressure and feeling amped up. - Plan: - Patient to resume taking amlodipine as prescribed. - Encourage patient to adhere to medication regimen and monitor blood pressure regularly. High Cholesterol - Assessment: Patient is currently on ezetimibe for high cholesterol management. Patient mentioned not wanting to take statins. - Plan: - Continue with current ezetimibe regimen. - Encourage patient to maintain a healthy diet and exercise routine. Family Support and Stress Management - Assessment: Patient's son, who also has bipolar disorder, is currently in a rehab facility and on Zyprexa and Depakote. Patient is aware of their son's situation and is in contact with him. Patient's son had stopped taking medications for a few days in June, leading to a manic episode. - Plan: - Encourage patient to maintain open communication with their son and seek support from mental health professionals if needed. - Recommend stress management techniques and self-care practices to maintain emotional well-being. Medication Refill and Management - Assessment: Patient experienced an issue with carbamazepine prescription at [facility] but has since resolved it. - Plan: - Ensure carbamazepine prescription is sent again to the pharmacy for patient's convenience. - Instruct patient to discard medications and refill new prescriptions as needed. Follow-up - Plan: - Schedule next appointment in three months, with the option to come in earlier if needed. - Inform patient about the walk-in clinic option, but advise to contact the doctor first for accommodation. 04/29/2024 Other Learning About Depression Screening material [...] potential treatment options. - If needed, Dr. Russ can prescribe modafinil for daytime sleepiness related to sleep apnea. Anxiety - Assessment: Patient reports anxiety related to lack of daily structure and political concerns. - Plan: - Encourage patient to implement lifestyle changes, such as structuring their day and engaging in hobbies or activities. - Re-evaluate anxiety levels during the three-month follow-up appointment. 10/30/2024 Other Seasonal Affective Disorder (SAD) - Assessment: Patient reports decreased energy and mood changes during winter months, attributing it to seasonality and a dislike of cold weather and holidays. - Plan: - Educate patient on proper use of mood lamp for light therapy. - Instruct patient to position lamp 18 inches away at an angle, ensuring light enters from the side. - Recommend 30 minutes of light therapy in the morning, not later than 10 am. - Encourage consistent use of the sun lamp. Gastroesophage al Reflux Disease (GERD) - Assessment: Patient reports recent flare-ups of GERD symptoms. - Plan: - Monitor results of upcoming upper GI endoscopy. - Adjust treatment as necessary based on findings. Medication Monitoring - Assessment: Patient currently taking Tegretol ER 200 mg at night (total dose of 300 mg) and Quetiapine 25 mg half tablet at night. - Plan: - Order Tegretol level to monitor therapeutic levels. - Review results and adjust dosage if necessary. Lab Work - Assessment: Patient reports having labs done a few months ago, but results are not available in the system. - Plan: - Order vitamin D, B12, and folate levels. - Request patient to obtain previous lab results from primary care provider and share electronically . - Adjust treatment plans based on results as needed. Follow-up - Plan: - Schedule follow-up appointment in 4 to 5 months (February) to assess progress and adjust treatment plan if necessary. Plan Of Treatment Future Test Test Name Order Date COMPREHENSIVE METABOLIC PANEL (69174) VITAMIN B12/FOLATE, SERUM PANEL (7065) 0 10/30/2024 VITAMIN D,25-OH,TOTAL,IA (36864) 025 CARBAMAZEPINE, TOTAL (329) 10/30/2024 Next Appt Details Provider Name:Geovanny Russ , 03/24/2025 08:30:00 AM, [address] [facility] [address], [place], [address], Insurance Providers Payer Name Payer Address Payer Phone Subscriber Number Group Number Insured Name Patient Relationship to Insured Coverage Start Date Coverage End Date [employer] [employer] [address] [place] [phone] [id number] BEATRIS BERNARDO Self - patient is the insured Medical (General) History Medical History History ICD Code Problems: Bipolar type I disorder tita fields in full remission Obstructive sleep apnea syndrome , Surgical History Surgery Date(Month/Year) Appendectomy (07668) 12/26/1970
--- OUTSIDE RECORDS SUMMARY | 2024-12-20 00:52 | XMS_ITS ---
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 Name Role Phone Carlos Ibarra DO Primary Care Provider Geovanny Radford Unavailable [phone] Allergies Allergen (clinical drug ingredient) Drug/Non Drug Allergy documented on EMR Reaction Allergy Type Onset Date Status predniSONE Unknown Drug Allergy 01/31/2024 Activ e REASON FOR VISIT 1 Follow up, phq less than 5, MIPS with Diagnosis of HTN Medications Medication SIG (Take, Route, Frequency, Duration) Notes Start Date End Date Status carBAMazepine ER 100 MG TAKE 1 TABLET BY MOUTH EVERY DAY for 90 Active amLODIPine Besylate 10 MG TAKE 1 TABLET BY MOUTH EVERY DAY Oral for 90 Days Activ e Ezetimibe 10 MG TAKE 1 TABLET (10 MG ) BY MOUTH DAILY. Oral for 90 Days Active carBAMazepine ER 200 MG 1 tablet every night Orally once a day for 90 days Total dose 300 mg daily Active carBAMazepine ER 100 MG 1 tablet Orally once a day for 90 days Total dose 300 mg daily Active QUEtiapine Fumarate 25 MG 0.5 tablet genie ry night Oral Once a day for 30 days 07/31/2024 Active Social History Tobacco Use: Social History Observation Description Date Details (start date - stop date) Former Smoker NA - NA Sex Assigned At : Social History Observation Description Sex Assigned At Male Tobacco Control (Standard) Question Answer Notes Tobacco use: Former smoker Problems Problem Type SNOMED Code ICD Code Onset Dates Problem Status W/U Status Risk Notes Problem [id number] Essential (primary) hypertension (I10) Active confirmed Vital Signs Blood pressure systolic 164 mm Hg 07/31/20 24 Blood pressure diastolic 100 mm Hg 024 Heart Rate 65 /min 07/31/2024 Height 70 in 07/31/2024 Weight 233.8 lbs 07/31/2024 BMI 33.54 kg/m2 07/31/2024 Height-cm 177.8 cm 07/31/2024 Weight-kg 106.05 kg 07/31/2024 Encounters Encounter Location Date Provider Diagnosis [facility] [address] [place] [address] 07/31/2024 Geovanny Gutierrez Bipolar disorder, currently in remission, most recent episode unspecified F31.70 ; Chronic fatigue R53.82 and Essential (primary) hypertension I10 Assessments Encounter Date Diagnosis (ICD Code) Assessment Notes Treatment Notes Treatment Clinical Notes Section Notes 07/31/2024 Bipolar disorder, currently in remission, most [...] experienced an issue with carbamazepine prescription at [facility] but has since resolved it. - Plan: [...] to contact the doctor first for accommodation. 07/31/2024 Chronic fatigue (ICD-10 - R53.82) Bipolar [...] experienced an issue with carbamazepine prescription at [facility] but has since resolved it. - Plan: [...] to contact the doctor first for accommodation. 07/31/2024 Essential (primary) hypertension (ICD-10 - I10) [...] experienced an issue with carbamazepine prescription at [facility] but has since resolved it. - Plan: [...] to contact the doctor first for accommodation. Plan Of Treatment Medication Medication Name Sig Start Date Stop Date Notes carBAMazepine ER 200 MG 1 tablet every n ight Orally once a day for 90 days carBAMazepine ER 100 MG 1 tablet Orally once a day for 90 days QUEtiapine Fumarate 25 MG 0.5 tablet genie ry night Oral Once a day for 30 days 07/31/2024 Next Appt Details Follow Up: 3 Months, Reason: Provider Name:Geovanny Gutierrez , 03/24/2025 08:30:00 AM, [facility], [facility] [address], [place], [address], Progress Notes * BEATRIS WALSHDOB: 0 (63 yo M)Acc No.[id number]:07/31/2024 Patient: BEATRIS ECHOLS Provider: Shama GUTIERREZ MD :1960 A ge:63 Y S ex:Male Date:07/31/2024 Address:[address] [place], [place] [id number] Pcp:Carlos Ibarra DO Subjective: * Chief Complaints: * 1 Follow upPhq less than 5MIPS with Diagnosis of HTN * HPI: D epression screening: Chief Complaint: Period of increased energy and difficulty sleeping The note is transcribed using speech recognition software. It is a reflection of a visit with the patient. It might have some inaccuracy, including medication names and transcribing errors, though efforts have been made to correct them. Recent Symptoms: The patient reported experiencing a period of increased energy and difficulty sleeping last week, which he described as feeling slightly manic. He took quetiapine (Seroquel) for three nights (, Monday, and Monday) to help with sleep. Family History: The patient mentioned that his son, who also has bipolar disorder, was experiencing issues around the same time and is currently in a rehab facility. Seasonal Patterns: The patient believes that the time of year, specifically the solstice and time change, may be contributing to their mood fluctuations. He noted that this seems to be a recurring problem for both him and his son every year during this season. Medication Usage: The patient stated that he took approximately 7 or 8 mg of quetiapine each night during the period of increased energy and requested a prescription for more 25 mg tablets for PRN use. He typically only uses about 3 or 4 tablets of quetiapine per year, often taking just a small portion of a tablet when needed. Current Status: The patient reported feeling stable for the last few days but forgot to take his blood pressure medication today, which has caused him to feel slightly amped up. He mentioned feeling more energetic today compared to yesterday, partly due to rushing around with a project and something going on at his taqnhi-bj-wta's house. Medical History: The patient has a history of high blood pressure and high cholesterol. Medications: - Carbamazepine 300 mg - Amlodipine (for high blood pressure) - Ezetimibe (for high cholesterol) - Quetiapine (PRN for sleep) The patient specifically mentioned not wanting to take statins for cholesterol management. Follow-up: The patient agreed to schedule a follow-up appointment in three months and will contact the clinic if any issues arise before then. Pharmacy: There was a recent issue with the carbamazepine prescription at the pharmacy, which has since been resolved. The note is transcribed using speech recognition software. It is a reflection of a visit with the patient. It might have some inaccuracy, including medication names and transcribing errors, though efforts have been made to correct them. PHQ-9 L ittle interest or pleasure in doing things N ot at all, F eeling down, depressed, or hopeless N ot at all, T rouble falling or staying asleep, or sleeping too much S everal , F eeling tired or having little energy N ot at all, P oor appetite or overeating N ot at all, T rouble concentrating on things, such as reading the newspaper or watching television S ever, M oving or speaking so slowly that other people could have noticed; or the opposite, being so fidgety or restless that you have been moving around a lot more than usual N ot at all. I ntervention D epression Screening Findings N egative, S uicide Risk Assessment Performed 1 09/30/2023 . D epression Screening: LINNETTE-7 (2018 Edition) F eeling nervous, anxious, or on edge?Not at all, N ot being able to stop or control worrying N ot at all, W orrying too much about different things N ot at all, T rouble relaxing N ot at all, B eing so restless that it is hard to sit still N ot at all, B ecoming easily annoyed or irritable N ot at all, F eeling afraid as if something awful might happen N ot at all, T otal LINNETTE-7 Score 0 , I nterpretation of Total ( 0 to 4) No Anxiety. * Medical History: * Surgical History: * Hospitalization/Major Diagno stic Procedure: * Social History: T obacco Use: T obacco Control (Standard) T obacco use: F ormer smoker. M igrated Social History: M igrated Social History: Alcohol Intake: None 01/31/2024,Tobacco Years: Former smoker 01/31/2024. D rug/Alcohol: D o you smoke marijuana?: Denies. Do you drink alcohol?: No. * Medications: T akingcarBAMazepine ER 200 MG Tablet Extended Release 12 Hour 1 tablet every night Orally once a day Total dose 300 mg dailyamLODIPine Besylate 10 MG Tablet TAKE 1 TABLET BY MOUTH EVERY DAY Oral Ezetimibe 10 MG Tablet TAKE 1 TABLET (10 MG) BY MOUTH DAILY. Oral carBAMazepine ER 100 MG Tablet Extended Release 12 Hour TAKE 1 TABLET BY MOUTH EVERY DAY Taking carBAMazepine ER 200 MG Tablet Extended Release 12 Hour 1 tablet every night Orally once a day Total dose 300 mg dailyTaking amLODIPine Besylate 10 MG Tablet TAKE 1 TABLET BY MOUTH EVERY DAY Oral Taking Ezetimibe 10 MG Tablet TAKE 1 TABLET (10 MG) BY MOUTH DAILY. Oral Taking carBAMazepine ER 100 MG Tablet Extended Release 12 Hour TAKE 1 TABLET BY MOUTH EVERY DAY DiscontinuedNystatin-Triamcinolone 035341-0.1 UNIT/GM Cream APPLY TO AFFECTED AREA TWICE A DAY NEEDED External Rosuvastatin Calcium 20 MG Tablet TAKE 1 TABLET BY MOUTH EVERYDAY AT BEDTIME Oral Medication List reviewed and reconciled with the patientDiscontinued Nystatin-Triamcinolone 259303-4.1 UNIT/GM Cream APPLY TO AFFECTED AREA TWICE A DAY NEEDED External Discontinued Rosuvastatin Calcium 20 MG Tablet TAKE 1 TABLET BY MOUTH EVERYDAY AT BEDTIME Oral Medication List reviewed and reconciled with the patient * Allergies: p Destini: Allergy - Onset Date 01/31/2024no[Allergies Verified] Objective: * Vitals: B P:164/100mm Hg, HR:65/min, Wt:233.8lbs, Wt-k.05 kg, Ht: 70 in, Ht-cm: 177.8 cm, BMI:33.54Index, Body Surface Area: 2.29. * Examination: G eneral Examination: M ental Status Examination: Patient reported increased energy and difficulty sleeping, indicative of a manic episode. Patient self-administered quetiapine to manage symptoms, taking approximately 7-8 mg (1/3 of a 25 mg tablet) for three nights. Patient denied current feelings of lillian or depression, reporting stabilization over the past few days. Patient reported forgetting to take blood pressure medication, contributing to feeling amped up. Vital Signs: Blood pressure: Elevated due to missed medication (specific values N/A). Diagnostic Test Results and Labs: Carbamazepine prescription filled on July 25, 2024. Current carbamazepine dosage: 300 mg total (200 mg + 100 mg). Previous carbamazepine dosages adjusted in February and April 2024, with a refill requested and sent on July 25, 2024. Patient reports taking amlodipine for blood pressure and ezetimibe for cholesterol. No other lab results or diagnostic tests documented. Assessment: * Assessment: 1. B ipolar disorder, currently in remission, most recent episode unspecified - F31.70 (Primary) 2 . C hronic fatigue - R53.82 3 . E ssential (primary) hypertension - I10 Bipolar Disorder - Assessment: Patient reported a [...] experienced an issue with carbamazepine prescription at [facility] but has since resolved it. - Plan: [...] to contact the doctor first for accommodation. Plan: * Treatment: * Procedure Codes: 9 6127 BEHAV ASSMT W/SCORE & DOCD/STAND [id number] VISIT COMPLEXITY INHERENT TO ONGOING CARE RELATED TO A PATIENT'S SINGLE, SERIOUS CONDITION OR A COMPLEX CONDITION * Preventive Medicine: Counseling: B P Management: F IRST HYPERTENSIVE BP READING FOLLOW-UP PLAN: F ollow-up 1 month Follow up with your PCP, Heather GARCIA RECOMMENDATION: Heather garcia education, REFERRAL TO ALTERNATIVE / PRIMARY CARE PROVIDER: Samm palacios to general medical service ____. * Follow Up: 3 Months * Billing Information: * Visit Code: 12722 OFFICE OUTPATIENT VISIT 25 MINUTES DETAILED HISTORY AND EXAM/MODERATE MEDICAL DECISION MAKING. * Procedure Codes: 50115 BEHAV ASSMT W/SCORE & DOCD/STAND INSTRUMENT. G2211 VISIT COMPLEXITY INHERENT TO ONGOING CARE RELATED TO A PATIENT'S SINGLE, SERIOUS CONDITION OR A COMPLEX CONDITION. * RT OPERATOR Sign off status: Completed true * Provider: Shama GUTIERREZ MD Date: 09/30/2023 Generated for Dejahi franchesca/Warren/Bethelsmitting on: 0 12/20/2024 12:52 AM CDT History and Physical Notes * HPI (History of Present Illness) Category Sub-Category Detail Notes Category Not es Depression screening PHQ-9 Little inte rest or pleasure in doing things: Not at all Feeling down, depressed, or hopeless: No t at all Trouble falling or staying asleep, or sl eeping too much: Several days Feeling tired or having little energy: N ot at all Poor appetite or overeating: Not at all Trouble concentrating on thi ngs, such as reading the newspaper or watching television: Several days Moving or speaking so slowly that other people could have noticed; or the opposite, being so fidgety or restless that you have been moving around a lot more than usual: Not at all Intervention Depression Screening Findings: N egative Suicide Risk Assessment Performed: 07/31 Depression Screening LINNETTE-7 (2018 Edition) Feelin g nervous, anxious, or on edge: Not at all Not being able to stop or control worryi ng: Not at all Worrying too much about different things : Not at all Trouble relaxing: Not at all Being so restless that it is hard to sit still: Not at all Becoming easily annoyed or irritable: No t at all Feeling afraid as if something awful mirna ht happen: Not at all Total LINNETTE-7 Score: 0 Interpretation of Total: (0 to 4) No Anx iety Examination Category Sub-Category Detail Notes Category Not es General Examination Mental Status Examination: Patient reported increased energy and difficulty sleeping, indicative of a manic episode. Patient self-administered quetiapine to manage symptoms, taking approximately 7-8 mg (1/3 of a 25 mg tablet) for three nights. Patient denied current feelings of lillian or depression, reporting stabilization over the past few days. Patient reported forgetting to take blood pressure medication, contributing to feeling amped up. Vital Signs: Blood pressure: Elevated due to missed medication (specific values N/A). Diagnostic Test Results and Labs: Carbamazepine prescription filled on July 25, 2024. Current carbamazepine dosage: 300 mg total (200 mg + 100 mg). Previous carbamazepine dosages adjusted in February and April 2024, with a refill requested and sent on July 25, 2024. Patient reports taking amlodipine for blood pressure and ezetimibe for cholesterol. No other lab results or diagnostic tests documented.
--- OUTSIDE RECORDS SUMMARY | 2024-12-20 00:52 | XMS_ITS ---
Author Organization [facility] As Factual Address [address] [facility] [address] [place] [address] Care Team Providers Care Authors Motivational Name Role Phone Carlos Ibarra DO Primary Care Provider Geovanny Radford Unavailable [phone] Allergies Allergen (clinical drug ingredient) Drug/Non Drug Allergy documented on EMR Reaction Allergy Type Onset Date Status predniSONE Unknown Drug Allergy 01/31/2024 Activ e REASON FOR VISIT f/u Medications Medication SIG (Take, Route, Frequency, Duration) Notes Start Date End Date Status Ezetimibe 10 MG TAKE 1 TABLET (10 [...] days Total dose 300 mg daily Active amLODIPine Besylate 10 MG TAKE 1 TABLET BY MOUTH EVERY DAY Oral for 90 Days Activ e Social History Sex Assigned At : Social History Observation Description Sex Assigned At Male Problems Problem Type SNOMED Code ICD Code Onset Dates Problem Status W/U Status Risk Notes Problem Vitamin D deficiency (54600583) Vitamin D deficiency (E55.9) Active confirmed Problem Vitamin deficiency (81142322) Vitamin deficiency (E56.9) Active confirmed Vital Signs Blood pressure systolic 127 mm Hg 10/30/19 25 Blood pressure diastolic 84 mm Hg 025 Heart Rate 54 /min 10/30/2024 Height 70 in 10/30/2024 Weight 235 lbs 10/30/2024 BMI 33.72 kg/m2 10/30/2024 Height-cm 177.8 cm 10/30/2024 Weight-kg 106.6 kg 10/30/2024 Encounters Encounter Location Date Provider Diagnosis [facility] Printed Piece [facility] [address] [place] [address] [place] [address] 10/30/2024 Geovanny Gutierrez Bipolar disorder, currently in remission, most recent episode unspecified F31.70 ; Vitamin D deficiency E55.9 ; Vitamin deficiency E56.9 ; Chronic fatigue R53.82 and Essential (primary) hypertension I10 Assessments Encounter Date Diagnosis (ICD Code) Assessment Notes Treatment Notes Treatment Clinical Notes Section Notes 10/30/2024 Bipolar disorder, currently in remission, most recent episode unspecified (ICD-10 - F31.70) 10/30/2024 Vitamin D deficiency (ICD-10 - E55.9) 10/30/2024 Vitamin deficiency (ICD-10 - E56.9) 10/30/2024 Chronic fatigue (ICD-10 - R53.82) 10/30/2024 Essential (primary) hypertension (ICD-10 - I10) 10/30/2024 Other Seasonal Affective Disorder (SAD) - [...] Encourage consistent use of the sun lamp. Gastroesophagea l Reflux Disease (GERD) - Assessment: Patient reports [...] results from primary care provider and share electronically. - Adjust treatment plans based on results as needed. Follow-up - Plan: - Schedule follow-up appointment in 4 to 5 months (February) to assess progress and adjust treatment plan if necessary. Plan Of Treatment Medication Medication Name Sig Start Date Stop Date Notes carBAMazepine ER 100 MG 1 tablet Orally once a day for 90 days QUEtiapine Fumarate 25 MG 0.5 tablet genie ry night Oral Once a day for 30 days carBAMazepine ER 200 MG 1 tablet every n ight Orally once a day for 90 days Future Test Test Name Order Date COMPREHENSIVE METABOLIC PANEL (46670) VITAMIN B12/FOLATE, SERUM PANEL (7065) 0 10/30/2024 VITAMIN D,25-OH,TOTAL,IA (61409) 025 CARBAMAZEPINE, TOTAL (329) 10/30/2024 Next Appt Details Follow Up: 4 Months ; 5 tg hs, Reason: Provider Name:Geovanny Gutierrez , 03/24/2025 08:30:00 AM, [address], [facility] [address], [place], [address], Progress Notes * BEATRIS WALSHDOB: 0 (64 yo M)Acc No.[id number]:10/30/2024 Patient: BEATRIS ECHOLS Provider: Shama GUTIERREZ MD :1960 A ge:64 Y S ex:Male Date:10/30/2024 Address:[address] [place] [address] Pcp:Carlos Ibarra DO Subjective: * Chief Complaints: * F /u * HPI: D epression Screening: The note is transcribed using speech recognition software. It is a reflection of a visit with the patient. It might have some inaccuracy, including medication names and transcribing errors, though efforts have been made to correct them. 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 He reports experiencing decreased energy levels, which he describes as a seasonal pattern resembling 'hibernation'. His energy tapers off in the winter, coinciding with shorter and colder days. Mood and Seasonal Changes: The patient denies depression but acknowledges a dislike for the holiday season. He orestes with these seasonal mood changes by recognizing their transient nature and anticipating the return of longer, warmer days. The patient has a sun lamp but has not been using it correctly; he received specific instructions on effective usage to manage seasonal mood changes. Medical Concerns: The patient mentions a recent flare-up of gastroesophageal reflux disease (GERD). He is scheduled for an upper GI examination in two weeks, with the possibility of an endoscopic procedure. The patient is also planning to retrieve medical records from a recent primary care visit and is scheduled for a full spectrum of lab tests, including vitamin D, B12, folate, and Tegretol levels. 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 LINNETTE-7 (2018 Edition) F eeling nervous, anxious, or on edge N ot at all N ot being able to stop or control worrying?Not at all W orrying too much about different things N ot at all T rouble relaxing N ot at all B eing so restless that it is hard to sit still N ot at all B ecoming easily annoyed or irritable N ot at all F eeling afraid as if something awful might happen N ot at all T otal LINNETTE-7 Score 0 I f you checked any problems, how difficult have they made it for you to do your work, take care of things at home, or get along with other people? N ot difficult at all I nterpretation of Total ( 0 to 4) No Anxiety D epression screening: PHQ-9 L ittle interest or pleasure in doing things?Several days F eeling down, depressed, or hopeless S everal days T rouble falling or staying asleep, or sleeping too much S everal days F eeling tired or having little energy S everal days P oor appetite or overeating N ot at all F eeling bad about yourself or that you are a failure, or have let yourself or your family down N ot at all T rouble concentrating on things, such as reading the newspaper or watching television N ot at all M oving or speaking so slowly that other people could have noticed; or the opposite, being so fidgety or restless that you have been moving around a lot more than usual N ot at all T houghts that you would be better off or of hurting yourself in some way N ot at all T otal Score 4 I nterpretation M inimal Depression * ROS: P erformance Met: N ormal blood pressure reading documented, follow-up not required ( G8783). * Medical History: * Surgical History: * Hospitalization/Major Diagno stic Procedure: * Social History: M igrated Social History: M igrated Social History: Alcohol Intake: None 01/31/2024,Tobacco Years: Former smoker 01/31/2024. * Medications: T akingcarBAMazepine ER 200 MG Tablet Extended Release 12 Hour 1 tablet every night Orally once a day Total dose 300 mg dailycarBAMazepine ER 100 MG Tablet Extended Release 12 Hour 1 tablet Orally once a day Total dose 300 mg dailyamLODIPine Besylate 10 MG Tablet TAKE 1 TABLET BY MOUTH EVERY DAY Oral Ezetimibe 10 MG Tablet TAKE 1 TABLET (10 MG) BY MOUTH DAILY. Oral QUEtiapine Fumarate 25 MG Tablet 0.5 tablet every night Oral Once a day Taking carBAMazepine ER 200 MG Tablet Extended Release 12 Hour 1 tablet every night Orally once a day Total dose 300 mg dailyTaking carBAMazepine ER 100 MG Tablet Extended Release 12 Hour 1 tablet Orally once a day Total dose 300 mg dailyTaking amLODIPine Besylate 10 MG Tablet TAKE 1 TABLET BY MOUTH EVERY DAY Oral Taking Ezetimibe 10 MG Tablet TAKE 1 TABLET (10 MG) BY MOUTH DAILY. Oral Taking QUEtiapine Fumarate 25 MG Tablet 0.5 tablet every night Oral Once a day DiscontinuedcarBAMazepine ER 100 MG Tablet Extended Release 12 Hour TAKE 1 TABLET BY MOUTH EVERY DAY Medication List reviewed and reconciled with the patientDiscontinued carBAMazepine ER 100 MG Tablet Extended Release 12 Hour TAKE 1 TABLET BY MOUTH EVERY DAY Medication List reviewed and reconciled with the patient * Allergies: p redniSONE: Allergy - Onset Date 01/31/2024no[Allergies Verified] Objective: * Vitals: B P:127/84mm Hg, HR:54/min, Wt:235lbs, Wt-k.6 kg, Ht: 70 in, Ht-cm: 177.8 cm, BMI:33.72Index, Body Surface Area: 2.29. * Examination: G eneral Examination: M ental Status Examination: Patient reports low energy levels, particularly during the winter months, which he attributes to seasonal changes rather than depression. He describes a lack of enthusiasm for the holidays and colder, shorter days. He does not report feelings of depression but indicates a seasonal pattern in his mood and energy levels. The patient is retired and previously worked in [employer]. Diagnostic Test Results and Labs: Patient mentions an upcoming upper GI endoscopy scheduled to investigate recent flare-ups of GERD. Last labs were conducted a few months before [place], specific dates and results not documented. Previous cholesterol and thyroid tests were mentioned to have been done in the fall, specific dates and results not documented. Upcoming tests ordered include Tegretol levels, vitamin D, B12, folate levels; specific dates for these tests are not mentioned. The patient uses a sun lamp but may not be using it correctly. The patient is on Tegretol ER 200 mg at night and Ketapen 25 mg half tablet at night. Assessment: * Assessment: 1. B ipolar disorder, currently in remission, most recent episode unspecified - F31.70 (Primary) 2 . V itamin D deficiency - E55.9 3 . V itamin deficiency - E56.9 4 . C hronic fatigue - R53.82 5 . E ssential (primary) hypertension - I10 Plan: * Treatment: 2. V itamin D deficiency L AB: VITAMIN B12/FOLATE, SERUM PANEL (7065) (Ordered for 10/30/2024) L AB: VITAMIN D,25-OH,TOTAL,IA (21498) (Ordered for 10/30/2024) L AB: COMPREHENSIVE METABOLIC PANEL (48655) (Ordered for 10/30/2024) 3. V itamin deficiency L AB: VITAMIN B12/FOLATE, SERUM PANEL (7065) (Ordered for 10/30/2024) L AB: VITAMIN D,25-OH,TOTAL,IA (90887) (Ordered for 10/30/2024) L AB: COMPREHENSIVE METABOLIC PANEL (63656) (Ordered for 10/30/2024) Veronica webb Clinical Notes: Seasonal Affective Disorder (SAD) - Assessment: Patient [...] Encourage consistent use of the sun lamp. Gastroesophageal Reflux Disease (GERD) - Assessment: Patient reports [...] results from primary care provider and share electronically. - Adjust treatment plans based on results as needed. Follow-up - Plan: - Schedule follow-up appointment in 4 to 5 months (February) to assess progress and adjust treatment plan if necessary. * Procedure Codes: G 8783 NORMAL BP READING DOC F/U NOT [id number] MOST RECENT SYSTOLIC BP < 140MM [id number] MOST RECENT DIASTOLIC BP < 90MM HG * Follow Up: 4 Months ; 5 months * Billing Information: * Visit Code: 55845 OFFICE OUTPATIENT VISIT 25 MINUTES DETAILED HISTORY AND EXAM/MODERATE MEDICAL DECISION MAKING. * Procedure Codes: G8783 NORMAL BP READING DOC F/U NOT RQR. G8752 MOST RECENT SYSTOLIC BP < 140MM HG. G8754 MOST RECENT DIASTOLIC BP < 90MM HG. * FITTER SUPERVISOR Sign off status: Completed true * Provider: Shama GUTIERREZ MD Date: 0 10/30/2024 Generated for Anita sorensen/Warren/Edithitting on: 0 12/20/2024 12:51 AM CDT History and Physical Notes * HPI (History of Present Illness) Category Sub-Category Detail Notes Category Not es Depression screening PHQ-9 Little inte rest or pleasure in doing things: Several days Feeling down, depressed, or hopeless: Se veral days Trouble falling or staying asleep, or sl eeping too much: Several days Feeling tired or having little energy: S everal days Poor appetite or overeating: Not at all Feeling bad about yourself o r that you are a failure, or have let yourself or your family down: Not at all Trouble concentrating on thi ngs, such as reading the newspaper or watching television: Not at all Moving or speaking so slowly that other people could have noticed; or the opposite, being so fidgety or restless that you have been moving around a lot more than usual: Not at all Thoughts that you would be b tiffany off or of hurting yourself in some way: Not at all Total Score: 4 Interpretation: Minimal Depression Depression Screening LINNETTE-7 (2018 Edition) Feelin g [...] Not at all Total LINNETTE-7 Score: 0 If you checked any problems, how difficult have they made it for you to do your work, take care of things at home, or get along with other people?: Not difficult at all Interpretation of Total: (0 to 4) No Anx iety Examination Category Sub-Category Detail Notes Category Not es General Examination Mental Status Examination: Patient reports low energy levels, particularly during the winter months, which he attributes to seasonal changes rather than depression. He describes a lack of enthusiasm for the holidays and colder, shorter days. He does not report feelings of depression but indicates a seasonal pattern in his mood and energy levels. 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 Diagnostic Test Results and Labs: Patient mentions an upcoming upper GI endoscopy scheduled to investigate recent flare-ups of GERD. Last labs were conducted a few months before [place], specific dates and results not documented. Previous cholesterol and thyroid tests were mentioned to have been done in the fall, specific dates and results not documented. Upcoming tests ordered include Tegretol levels, vitamin D, B12, folate levels; specific dates for these tests are not mentioned. The patient uses a sun lamp but may not be using it correctly. The patient is on Tegretol ER 200 mg at night and Ketapen 25 mg half tablet at night.
--- OUTSIDE RECORDS SUMMARY | 2024-12-20 00:52 | XMS_ITS | Encounter Summary ---
Author Organization [facility] Address [address] [address] Care Team Providers Care Fur Tanner Name Role Phone Unavailable Primary Care Provider Unavailabl e Encounter Details Date Type Department Care Team (Late st Contact Info) Description 11/24/2022 Lab Requisition [facility] DermPath Lab [address] [facility] [address] [place] [phone] Wiliam Lau MD [address] [facility] [address] [place] [address] Social History Tobacco Use Types Packs/Day Years Used Date Smoking Tobacco: Never Assessed Sex and Gender Information Value Date Recorded Sex Assigned at Not on file Gender Identity Not on file Sexual Orientation Not on file documented as of this encounter Plan of Treatment Not on file documented as of this encounter Procedures Procedure Name Priority Date/Time Associated Diagnosis Comments DERMATOPATHOLOGY Routine 11/23/2022 12:0 0 AM SENIOR LINUX UNIX ADMINISTRATOR documented in this encounter Results * DERMATOPATHOLOGY (11/23/2022 12:00 AM SENIOR LINUX UNIX ADMINISTRATOR) Case Report Dermatopathology Report Case: [id number] Authorizing Provider: Wiliam Lau MD Collected: 11/23/2022 12:00 AM Ordering Location: [facility] DermPath Lab Received: 11/24/2022 04:44 PM Pathologist: Danette Curiel MD Specimen: Skin, mid upper forehead 3 11:06 AM CDT DERMATOPATHOLOGY LABORATORY Final Diagnosis Specimen A. SKIN, mid upper forehead: MATURE ADIPOSE TISSUE CONSISTENT WITH LIPOMA (D17.0) PRESENT AT MARGIN 3 11:06 AM CDT DERMATOPATHOLOGY LABORATORY Clinical History Lipoma vs Cyst Path#[id number] Check margins 3 11:06 AM CDT DERMATOPATHOLOGY LABORATORY Gross Description Specimen A: Received is one formalin filled container labeled with the patient's name and designated mid upper forehead. The specimen consists of a 44a75x19 mm piece of skin. The margin is inked green. The specimen is bisected lengthwise and submitted in 1 cassette. Jar 0. 3 11:06 AM [facility] DERMATOPATHOLOGY LABORATORY Microscopic Description Specimen A. SKIN, mid upper forehead: There are typical adipocytes with minimal fibrous trabeculae. This lesion is present at the margin of the specimen. 3 11:06 AM [facility] DERMATOPATHOLOGY LABORATORY Disclaimer An external and internal positive and negative controls are appropriate for the histochemical, immunohistochemical and immunofluorescence stain(s) in this case (if any), except where stated explicitly. The performance characteristics of the stain(s) cited in this report were developed and its performance characteristic determined by the Dermatopathology Laboratory at [facility], directed by Dr. Ellen Dominguez. These tests need not be, and therefore are not, approved by the [place] Food and Drug Administration. The tests are used for clinical purposes. Billing Codes Specimen Charges Stain Charges 86917 1 3 11:06 AM [facility] DERMATOPATHOLOGY LABORATORY Embedded Images 3 11:06 AM [facility] DERMATOPATHOLOGY LABORATORY Pathology/Cytolog y TISSUE SPECIMEN FROM SKIN / Unknown 11/23/2022 11/24/2022 4:44 PM SENIOR LINUX UNIX ADMINISTRATOR Wiliam Lau MD LAB - PATHOLOGY/CYTO LOGY ORDERABLES DERMATOPATHOLOGY LABORATORY [facility] - Department of Dermatology [address], [address] [phone] documented in this encounter Visit Diagnoses Not on filedocumented in this encounter
[2024-12-20 08:33] VITALS: BP 140/77; PULSE 62; RESP 18; TEMP 36.2; O2SAT 97
[2024-12-20] MEDS: LACTATED RINGERS 1,000 ML 150 ML IV CONT (08:40)
--- NOTE | 2024-12-20 08:42 | WPDANESEPPF ---
Anes - Initial Pre Proc Eval Procedure: Operation Date: 12/20/24 10:00 Proposed Procedures p Esophagogastroduodenoscopy EGD - Suhas Rosario MD Date/Time: 12/20/24 08:42 Surgeon: Suhas Rosario MD Pre Op Diagnosis: GERD, Dysphagia, unspecified Patient Data Age: 64 Gender: M Height: 1.78 m Weight: 105.7 kg Last Vital Signs Temp 97.1 F L 12/20/24 08:33 Pulse 62 12/20/24 08:33 Resp 18 12/20/24 08:33 BP 140/77 12/20/24 08:33 Pulse Ox 97 12/20/24 08:33 O2 Del Method Room Air 12/20/24 08:33 Allergies Allergy/AdvReac Type Severity Reaction Status Date / Time methylprednisolone Allergy Unknown manic state Verified 12/20/24 08:32 prednisone Allergy Unknown manic state Verified 12/20/24 08:32 Home Medications ?Medication ?Instructions ?Recorded ?Confirmed ?Type carbamazepine 200 mg See Rx Instructions PO .COMPLEX 05/11/21 12/20/24 History tablet,extended release,12 hr (Tegretol XR) amlodipine 10 mg tablet 10 mg PO DAILY #90 tabs 06/20/24 12/20/24 Rx ezetimibe 10 mg tablet 10 mg PO DAILY 08/06/24 12/20/24 History esomeprazole magnesium 40 mg 40 mg PO BID 1 month #60 caps 11/25/24 12/20/24 Rx capsule,delayed release (Nexium) omeprazole 40 mg capsule,delayed 40 mg PO BID 12/12/24 12/20/24 History release Patient hx anesthesia problems: none Family hx anesthesia problems: none Results Review: All pre-operative results and documents have been reviewed as part of the pre-operative evaluation. [facility] Past Medical History Medical History Essential (primary) hypertension Mixed hyperlipidemia Bipolar 1 disorder Frequent PVCs RBBB (right bundle branch block) Left flank pain, chronic Dysphagia Carpal tunnel syndrome of right wrist Family History Family History Father Hypertension Social History Social History Smoking packs per day: 1 Smoking cigarettes per day: 20.0 Years smoked: 20 Smoking pack-years: 20.00 Smoking status: Former smoker Tobacco type: cigarettes Second hand tobacco smoke exposure: No Smoking end date: 09/18/01 Alcohol intake: never Substance use: never Substance use type: does not use Living arrangements: with family Spiritual care concerns: No Anes - Eval Final PreProcedure Day of Procedure 12/20/24 08:42 Patient weight: obese Lungs: normal air movement Airway: Mallampati scale class II Neurological: alert and oriented Last oral intake: >/= 8 hours ASA classification: III Emergent: no Anesthetic plan: proceed Anesthesia type and monitoring: general GIVS and standard monitoring Results Review: All pre-operative results and documents have been reviewed as part of the pre-operative evaluation. HTN, hyperlipidemia, ex smoker quit approx 2004, apparent hx bipolar, now for EGD for GERD. Informed Consent: The patient's anesthetic plan and its attendant risks and benefits were discussed with the patient/family/POA. Questions were solicited and answers provided to the satisfaction of the patient/family/POA.
--- NOTE | 2024-12-20 09:16 | PM.IMHP ---
H&P: HPI History of Present Illness Date/Time: 12/20/24 09:16 Chief Complaint: GERD-dysphagia Narrative: this patient has been suffering from heartburn for at least 5 years, daily episodes. He has a cheese partial control with omeprazole, which he takes twice a day. In addition, she feels mild dysphagia to solid food very frequently. He has never Review of Systems Review of Systems: All systems reviewed & are unremarkable except as noted in HPI and below PMFSH Past Medical History Medical History Essential (primary) hypertension Mixed hyperlipidemia Bipolar 1 disorder Frequent PVCs RBBB (right bundle branch block) Left flank pain, chronic Dysphagia Carpal tunnel syndrome of right wrist Family History Family History Father Hypertension Social History Social History Smoking packs per day: 1 Smoking cigarettes per day: 20.0 Years smoked: 20 Smoking pack-years: 20.00 Smoking status: Former smoker Tobacco type: cigarettes Second hand tobacco smoke exposure: No Smoking end date: 09/18/01 Alcohol intake: never Substance use: never Substance use type: does not use Living arrangements: with family Spiritual care concerns: No Meds Home Medications and Allergies Home Medications ?Medication ?Instructions ?Recorded ?Confirmed ?Type carbamazepine 200 mg See Rx Instructions PO .COMPLEX 05/11/21 12/20/24 History tablet,extended release,12 hr (Tegretol XR) amlodipine 10 mg tablet 10 mg PO DAILY #90 tabs 06/20/24 12/20/24 Rx ezetimibe 10 mg tablet 10 mg PO DAILY 08/06/24 12/20/24 History esomeprazole magnesium 40 mg 40 mg PO BID 1 month #60 caps 11/25/24 12/20/24 Rx capsule,delayed release (Nexium) omeprazole 40 mg capsule,delayed 40 mg PO BID 12/12/24 12/20/24 History release Allergies Allergy/AdvReac Type Severity Reaction Status Date / Time methylprednisolone Allergy Unknown manic state Verified 12/20/24 08:32 prednisone Allergy Unknown manic state Verified 12/20/24 08:32 Vital Signs Vital Signs - 24 hr 12/20/24 08:33 Temperature 97.1 F L Pulse Rate 62 Respiratory Rate 18 Blood Pressure 140/77 Pulse Oximetry 97 Oxygen Delivery Room Air Exam Const: General: cooperative and healthy appearing Resp: Effort & Inspection: normal respiratory effort and able to speak in complete sentences Auscultation: clear to auscultation bilaterally Cardio: Rate: regular rate Rhythm: regular rhythm GI: Inspection: normal to inspection GI Palp: No No hepatosplenomegaly present Auscultation: normal bowel sounds Rectal Exam: deferred Skin: General skin exam: normal color Psych: Appearance: grossly normal Mental Status: mental status grossly normal Assessment and Plan Assessment and plan (1) Dysphagia: Code(s): R13.10 - Dysphagia, unspecified Status: Acute Assessment and Plan: The patient is deemed a good candidate for the procedure. Consent signed. Will proceed. (2) Acid reflux: Code(s): K21.9 - Gastro-esophageal reflux disease without esophagitis Status: Acute
[2024-12-20 09:37] VITALS: BP 121/73; PULSE 63; RESP 21; O2SAT 97
[2024-12-20 09:47] VITALS: BP 125/76; PULSE 61; RESP 14; O2SAT 99
[2024-12-20 09:57] VITALS: BP 125/86; PULSE 60; RESP 16; O2SAT 100
== END 2024-12-20 10:12 | disposition home or self-care (01) ==
PROVIDERS: PCP Internal Medicine; Referring Provider Nurse Practitioner Family; Visit Provider Internal Medicine Gastroenterology
PROC: 0DJ08ZZ Inspection of Upper Intestinal Tract, Via Natural or Artificial Opening Endoscopic (ICD-10-PCS; CPT 43239; principal; 2024-12-20 10:00)
DX: K21.00 Gastro-esophageal reflux disease with esophagitis, without bleeding (principal); K29.50 Unspecified chronic gastritis without bleeding; K31.89 Other diseases of stomach and duodenum; I10 Essential (primary) hypertension; E78.2 Mixed hyperlipidemia; F31.9 Bipolar disorder, unspecified; I49.3 Ventricular premature depolarization; I45.10 Unspecified right bundle-branch block; G56.01 Carpal tunnel syndrome, right upper limb; E66.9 Obesity, unspecified; Z68.33 Body mass index [BMI] 33.0-33.9, adult; Z87.891 Personal history of nicotine dependence
CPT/HCPCS: 43239; 88305; J2003; J2704; J7120

== ENCOUNTER 2025-02-04 11:06 | Outpatient (CLI) | payer OTHER, SELFPAY ==
--- NOTE | ~2025-02-04 | XR_ITS ---
EXAMINATION: XR chest 2V 02/04/2025 11:23 INDICATION: Shortness of breath PROCEDURE: 2 view chest COMPARISON: No prior studies for comparison. FINDINGS: The lungs are clear. The cardiomediastinal silhouette is within normal limits. There are no pleural effusions. There is no pneumothorax suspected. IMPRESSION: 1: NO ACUTE CARDIOPULMONARY DISEASE. Reviewed, dictated and finalized at location B.
--- OUTSIDE RECORDS SUMMARY | 2025-02-04 11:16 | XMS_ITS | Clinical Summary ---
Author Organization [facility] Address [address] [place] [address] Care Team Providers Care Senior Java Architect Name Role Phone Unavailable Primary Care Provider Unavailabl e Source Comments [facility] [employer],non-owned Affiliates and Associated Physician Practices is amultiple site organization consisting of ambulatory clinics and hospital sitesin [place], [place], [place] and [place]. This disclosure is being madepursuant to the Care Everywhere program and may not contain all information available regarding this patient. 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 CHILDHOOD Gender Identity Not on file Sexual Orientation [...] VACCINE ( - 2023-2 5 season) 2024 DEPRESSION SCREENING 09/18/2024 INFLUENZA VACCINE (Season Ended) 2025 Respiratory Syncytial Virus (RSV) Vaccine Pt: or [...] on patient's age to complete this topic Insurance [facility]URANCE Member Subscriber Plan / Payer (Ef fective for All Dates) Name:Nicholas Walsh Member ID:Not on file Relation to Subscriber:Not on file Name:NICHOLAS WALSH Subscriber ID:Not on file (Home) Address: [address] [place] [id number] Payer ID:Not on file Group ID:Not on file Type:Self Pay Address: [place], [place]
--- OUTSIDE RECORDS SUMMARY | 2025-02-04 11:16 | XMS_ITS | Encounter Summary ---
Author Organization [facility] Address [address] [place] [address] Care Team Providers Care Nursing Home Administrator Name Role Phone Unavailable Primary Care Provider Unavailabl e Encounter Details Date Type Department Care Team (Late st Contact Info) Description 11/24/2022 Lab Requisition [facility] [address] [place] [phone] Wiliam Lau MD [address] [address] Social History Tobacco Use Types Packs/Day Years Used Date Smoking Tobacco: Never Assessed Sex and Gender Information Value Date Recorded Sex Assigned at Not on file Legal Sex Male 3:59 PM 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 TRAINER Gender Identity Not on file Sexual Orientation Not on file documented as of this encounter Plan of Treatment Not on file documented as of this encounter Procedures Procedure Name Priority Date/Time Associated Diagnosis Comments DERMATOPATHOLOGY Routine 11/23/2022 12:0 0 AM MANAGEMENT TRAINER documented in this encounter Results * DERMATOPATHOLOGY (11/23/2022 12:00 AM MANAGEMENT TRAINER) Case Report Dermatopathology Report Case: [id number] Authorizing Provider: Wiliam Lau MD Collected: 11/23/2022 12:00 AM Ordering Location: [facility] Received: 11/24/2022 04:44 PM Pathologist: Danette Curiel MD Specimen: Skin, mid upper forehead 3 11:06 AM CDT DERMATOPATHOLOGY LABORATORY Final Diagnosis Specimen A. SKIN, mid upper forehead: MATURE ADIPOSE TISSUE CONSISTENT WITH LIPOMA (D17.0) PRESENT AT MARGIN 3 11:06 AM CDT DERMATOPATHOLOGY LABORATORY at 1106 CDT Clinical History Lipoma vs Cyst Path#[id number] Check margins 3 11:06 AM T DERMATOPATHOLOGY LABORATORY Gross Description Specimen A: Received is one formalin filled container labeled with the patient's name and designated mid upper forehead. The specimen consists of a [id number] mm piece of skin. The margin is inked green. The specimen is bisected lengthwise and submitted in 1 cassette. Jar 0. 3 11:06 AM T DERMATOPATHOLOGY LABORATORY Microscopic Description Specimen A. SKIN, mid upper forehead: There are typical adipocytes with minimal fibrous trabeculae. This lesion is present at the margin of the specimen. 3 11:06 AM T DERMATOPATHOLOGY LABORATORY Disclaimer An external and internal positive and negative controls are appropriate for the histochemical, immunohistochemical and immunofluorescence stain(s) in this case (if any), except where stated explicitly. The performance characteristics of the stain(s) cited in this report were developed and its performance characteristic determined by the Dermatopathology Laboratory at [facility], directed by Dr. Ellen Dominguez. These tests need not be, and therefore are not, approved by the [place] Food and Drug Administration. The tests are used for clinical purposes. Billing Codes Specimen Charges Stain Charges 60640 1 3 11:06 AM T DERMATOPATHOLOGY LABORATORY Embedded Images 3 11:06 AM T DERMATOPATHOLOGY LABORATORY Pathology/Cytolog y TISSUE SPECIMEN FROM SKIN / Unknown 11/23/2022 11/24/2022 4:44 PM MANAGEMENT TRAINER us Wiliam Lau MD LAB - PATHOLOGY/CYTOLOGY ORDER BECKIE Final Result DERMATOPATHOLOGY LABORATORY [facility] - Department of Dermatology [address], [address] [phone] documented in this encounter Visit Diagnoses Not on filedocumented in this encounter
--- OUTSIDE RECORDS SUMMARY | 2025-02-04 11:16 | XMS_ITS | Continuity of Care Document ---
Author Name [facility] Organization [facility] Care Team Providers Care Straight Tooth Gear Generator Operator Name Role Phone [facility] Unavailable Unavailable Social History Combined list of available smoking, tobacco, and other social history from Department of Defense and Veterans Affairs facilities. Social History Type Response Date Comment Sourc e This section is an empty social history section. DoD
== END 2025-02-04 11:07 | disposition home or self-care (01) ==
LOC: ANHIMG 11:10
PROVIDERS: PCP Internal Medicine; Visit Provider Internal Medicine
DX: R06.02 Shortness of breath (principal)
CPT/HCPCS: 71046

== ENCOUNTER 2025-05-09 14:23 | Outpatient (CLI) | payer OTHER, SELFPAY ==
--- NOTE | ~2025-05-09 | XR_ITS ---
XR elbow RT min 3V 05/09/2025 14:38 INDICATION: Right elbow pain PROCEDURE: 4 views right elbow COMPARISON: No prior studies for comparison. FINDINGS: Fracture, dislocation or subluxation is not identified. The soft tissues appear within normal limits. No foreign bodies are identified. IMPRESSION: 1: NO ACUTE BONE OR JOINT ABNORMALITY IDENTIFIED. Reviewed, dictated and finalized at location O.
--- OUTSIDE RECORDS SUMMARY | 2025-05-09 14:26 | XMS_ITS | Clinical Summary ---
Author Organization [facility] Address [address] [place] [address] Care Team Providers Care Switching Operator Name Role Phone Unavailable Primary Care Provider Unavailabl e Source Comments [facility] [employer],non-owned Affiliates and Associated Physician Practices is amultiple site organization consisting of ambulatory clinics and hospital sitesin [place], [place], [place] and [place]. This disclosure is being madepursuant to the Care Everywhere program and may not contain all information available regarding this patient. 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 Gender Identity Not on file Sexual Orientation [...] season) 2024 DEPRESSION SCREENING 09/18/2024 INFLUENZA VACCINE (#1) 2025 Respiratory Syncytial Virus (RSV) Vaccine Pt: [...] patient's age to complete this topic Insurance [facility] S[place]F [facility]Y NO INSURANCE Member Subscriber Plan / Payer (Ef fective for All Dates) Name:Nicholas Walsh Member ID:Not on file Relation to Subscriber:Not on file Name:NICHOLAS WALSH Subscriber ID:Not on file (Home) Address: [address] [place] [phone] Payer ID:Not on file Group ID:Not on file Type:Self Pay Address: [place], [place]
--- OUTSIDE RECORDS SUMMARY | 2025-05-09 14:26 | XMS_ITS | Continuity of Care Document ---
Author Name [facility] Organization [facility] Care Team Providers Care Senior Support Engineer Name Role Phone [facility] Unavailable Unavailable Social History Combined list of available smoking, tobacco, and other social history from Department of Defense and Veterans Affairs facilities. Social History Type Response Date Comment Sourc e This section is an empty social history section. DoD
--- OUTSIDE RECORDS SUMMARY | 2025-05-09 14:26 | XMS_ITS | Encounter Summary ---
Author Organization [facility] Address [address] [place] [address] Care Team Providers Care Invasive Physician Name Role Phone Unavailable Primary Care Provider Unavailabl e Encounter Details Date Type Department Care Team (Late st Contact Info) Description 11/24/2022 Lab Requisition [facility] [address] [place] [phone] Wiliam Lau MD [address] [place] [place] [address] Social History Tobacco Use Types Packs/Day Years Used Date Smoking Tobacco: Never Assessed Sex and Gender Information Value Date Recorded Sex Assigned at Not on file Legal Sex Male 3:59 PM CHILI PEPPER GRINDER Gender Identity Not on file Sexual Orientation Not on file documented as of this encounter Plan of Treatment Not on file documented as of this encounter Procedures Procedure Name Priority Date/Time Associated Diagnosis Comments DERMATOPATHOLOGY Routine 11/23/2022 12:0 0 AM CHILI PEPPER GRINDER documented in this encounter Results * DERMATOPATHOLOGY (11/23/2022 12:00 AM CHILI PEPPER GRINDER) Case Report Dermatopathology Report Case: [id number] Authorizing Provider: Wiliam Lau MD Collected: 11/23/2022 12:00 AM Ordering Location: [facility] Received: 11/24/2022 04:44 PM Pathologist: Danette Curiel MD Specimen: Skin, mid upper forehead 3 11:06 AM CDT DERMATOPATHOLOGY LABORATORY Final Diagnosis Specimen A. SKIN, mid upper forehead: MATURE ADIPOSE TISSUE CONSISTENT WITH LIPOMA (D17.0) PRESENT AT MARGIN 3 11:06 AM CDT DERMATOPATHOLOGY LABORATORY at 1106 CDT Clinical History Lipoma vs Cyst Path#[id number] Check margins 3 11:06 AM T DERMATOPATHOLOGY LABORATORY Gross Description Specimen A: Received is one formalin filled container labeled with the patient's name and designated mid upper forehead. The specimen consists of a [id number] mm piece of skin. The margin is [...] characteristic determined by the Dermatopathology Laboratory at [facility], directed by Dr. Ellen Dominguez. These tests need not be, and therefore are not, approved by the [place] Food and Drug Administration. The tests are used for clinical purposes. Billing Codes Specimen Charges Stain Charges 59819 1 3 11:06 AM T DERMATOPATHOLOGY LABORATORY Embedded Images 3 11:06 AM T DERMATOPATHOLOGY LABORATORY Pathology/Cytolog y TISSUE SPECIMEN FROM SKIN / Unknown 11/23/2022 11/24/2022 4:44 PM CHILI PEPPER GRINDER us Wiliam Lau MD LAB - PATHOLOGY/CYTOLOGY ORDER BECKIE Final Result DERMATOPATHOLOGY LABORATORY [facility] - Department of Dermatology [address] [phone] documented in this encounter Visit Diagnoses Not on filedocumented in this encounter
--- OUTSIDE RECORDS SUMMARY | 2025-05-09 14:27 | XMS_ITS | Patient Health Record ---
Author Organization [facility] Address [address] [facility] [address] [place] [address] Care Team Providers Care Biology Tutor Name Role Phone Stacey Carlos SMITH Primary Care Provider Geovanny Radford Unavailable [phone] Allergies Allergen (clinical drug ingredient) Drug/Non Drug Allergy documented on EMR Reaction Allergy Type Onset Date Status predniSONE Unknown Drug Allergy 01/31/2024 Activ e Results Component Value Reference Range Flag Notes VITAMIN B12/FOLATE, SERUM PA LISA (6677) Reviewed date:01/09/2025 03:08:44 PM Interpretation:Normal Performing Lab:[facility], [facility]-[id number] Suzette Jones, [id number] Sarah Rudolph MD Notes/Report: NON-FASTING; NON-FASTING; NON-FASTING; NON-FASTING FASTING:YES FASTING: YES VITAMIN B12 024 120-1168 pg/mL N FOLATE, SERUM 10.0 N Reference Range Low: <3.4 Borderline: 3.4-5.4 Normal: >5.4 VITAMIN D,25-OH,TOTAL,IA (17 306) Reviewed date:01/09/2025 03:08:44 PM Interpretation:Normal Performing Lab:[facility]-[id number] Suzette Jones, [id number] Sarah Rudolph MD Notes/Report: NON-FASTING; NON-FASTING; NON-FASTING; NON-FASTING FASTING:YES FASTING: YES VITAMIN D,25-OH,TOTAL,IA 36 30-100 ng/mL N Vitamin D Status 25-OH Vitamin D: Deficiency: <20 ng/mL Insufficiency: 20 - 29 ng/mL Optimal: > or = 30 ng/mL For 25-OH Vitamin D testing on patients on D2-supplementation and patients for whom quantitation of D2 and D3 fractions is required, the QuestAssureD(TM) 25-OH VIT D, (D2,D3), LC/MS/MS is recommended: order code 66045 (patients >2yrs). See Note 1 Note 1 For additional information, please refer to http://education.[employer]/faq/FA Q199 (This link is being provided for informational/ educational purposes only.) COMPREHENSIVE METABOLIC PANNisa Romero ([id number]) Reviewed date:01/09/2025 03:08:44 PM Interpretation:Normal Abnormal (no f/u needed) Performing Lab:[id number] Administration Amparo Aguiar [id number] Sarah Rudolph Notes/Report: NON-FASTING; NON-FASTING; NON-FASTING; NON-FASTING FASTING:YES FASTING: YES GLUCOSE 89 65-99 mg/dL N Fasting reference interval UREA NITROGEN (BUN) 15 7-25 mg/dL N CREATININE 0.88 0.70-1.35 mg/dL N EGFR 96 > OR = 60 mL/min/1.73m2 N BUN/CREATININE RATIO SEE NOTE: 6-22 (calc) Not Reported: BUN and Creatinine are within reference range. SODIUM 140 135-146 mmol/L N POTASSIUM 4.0 3.5-5.3 mmol/L N CHLORIDE 105 98-110 mmol/L N CARBON DIOXIDE 30 20-32 mmol/L N CALCIUM 9.4 8.6-10.3 mg/dL N PROTEIN, TOTAL 5.9 6.1-8.1 g/dL L ALBUMIN 4.3 3.6-5.1 g/dL N GLOBULIN 1.6 1.9-3.7 g/dL (calc) L ALBUMIN/GLOBULIN RATIO 2.7 1.0-2.5 (calc) H BILIRUBIN, TOTAL 0.4 0.2-1.2 mg/dL N ALKALINE PHOSPHATASE 68 35-144 U/L N AST 17 10-35 U/L N ALT 17 9-46 U/L N CARBAMAZEPINE, TOTAL (329) Reviewed date:01/09/2025 03:08:44 PM Interpretation:Normal Performing Lab:[facility]-[id number] Suzette Jones, [id number] Sarah Rudolph MD Notes/Report: NON-FASTING; NON-FASTING; NON-FASTING; NON-FASTING FASTING:YES FASTING: YES CARBAMAZEPINE, TOTAL 5.3 4.0-12.0 mg/L N Reason For Referral No Information Medications Medication SIG (Take, Route, Frequency, Duration) Notes Start Date End Date Status QUEtiapine Fumarate 25 MG Tablet 0.5 tablet every night Oral Once a day; Duration: 30 days As needed Active carBAMazepine ER 100 MG Tablet Extended Release 12 Hour 1 tablet Orally once a day; Duration: 90 days Total dose 300 mg daily Active carBAMazepine ER 200 MG Tablet Extended Release 12 Hour 1 tablet every night Orally once a day; Duration: 90 days Total dose 300 mg daily Active carBAMazepine ER 100 mg Tablet Extended Release 12 Hour TAKE 1 TABLET ONCE DAILY (TOTAL DOSE 300 MG DAILY) Active carBAMazepine ER 200 mg Tablet Extended Release 12 Hour TAKE 1 TABLET ONCE DAILY AT NIGHT. (TOTAL DOSE 300 MG DAILY) Active Ezetimibe 10 MG Tablet TAKE 1 TABLET (10 MG) BY MOUTH DAILY. Oral; Duration: 90 Days Active amLODIPine Besylate 10 MG Tablet TAKE 1 TABLET BY MOUTH EVERY DAY Oral; Duration: 90 Days Active Social History Tobacco Use: Social History Observation Description Date Details (start date - stop date) Former Smoker NA - NA Sex Assigned At : Social History Observation Description Sex Assigned At Male Social History Tobacco Use: Social Info Question Answer Notes Tobacco Control (Standard) Tobacco use: Former smoker Additional Details Category Social Info Options Details Migrated Social History Migrated Social History Alcohol Intake: None 01/31/2024,Tobacco Years: Former smoker 01/31/2024 Drug/Alcohol: Do you smoke marijuana? Den ies Do you drink alcohol? No Problems Problem Type SNOMED Code ICD Code Onset Dates Problem Status W/U Status Risk Notes Problem Bipolar I disorder, most recent episode mixed, in remission (38037975) Bipolar disorder, currently in remission, most recent episode unspecified (F31.70) Active confirmed Problem Essential hypertension (52123566) Essential (primary) hypertension (I10) Active confirmed Problem Vitamin D deficiency (17946665) Vitamin D deficiency (E55.9) Active confirmed Problem Chronic fatigue syndrome (36562478) Chronic fatigue (R53.82) Active confirmed Problem Vitamin deficiency (17642408) Vitamin deficiency (E56.9) Active confirmed Vital Signs Heart Rate 54 /min 10/30/2024 Height-cm 177.8 cm 10/30/2024 Blood pressure diastolic 84 mm Hg 10/30/2024 Weight-kg 106.6 kg 10/30/2024 Height 70 in 10/30/2024 Blood pressure systolic 127 mm Hg 10/30/2024 Weight 235 lbs 10/30/2024 BMI 33.72 kg/m2 10/30/2024 Encounters Encounter Location Date Provider Diagnosis [facility] [email or web address] [address] [address] 07/31/2024 Geovanny Petrona Bipolar disorder, currently in remission, most recent episode unspecified F31.70 ; Chronic fatigue R53.82 and Essential (primary) hypertension I10 [facility] [email or web address] [address] [address] 10/30/2024 Geovanny Petrona Bipolar disorder, currently in remission, most recent episode unspecified F31.70 ; Vitamin D deficiency E55.9 ; Vitamin deficiency E56.9 ; Chronic fatigue R53.82 and Essential (primary) hypertension I10 [facility] [employer] [address] 04/16/2025 Geovanny Petrona Bipolar disorder, currently in remission, most recent episode unspecified F31.70 ; Vitamin D deficiency E55.9 ; Vitamin deficiency E56.9 ; Chronic fatigue R53.82 and Essential (primary) hypertension I10 [address] [address] 12/27/2024 Geovannywes Russ Bipolar disorder, currently in remission, most recent episode unspecified F31.70 [facility] [employer] [address] 01/10/2025 Geovanny Petrona Assessments Encounter Date Diagnosis (ICD Code) Assessment [...] experienced an issue with carbamazepine prescription at [facility] but has since resolved it. [...] contact the doctor first for accommodation. 10/30/2024 Bipolar disorder, currently in remission, most recent episode unspecified (ICD-10 - F31.70) 10/30/2024 Vitamin deficiency (ICD-10 - E56.9) 12/27/2024 Bipolar disorder, currently in remission, most recent episode unspecified (ICD-10 - F31.70) 04/16/2025 Bipolar disorder, currently in remission, most recent episode unspecified (ICD-10 - F31.70) Mood has remained stable with no recent episodes of lillian or major depression. Patient reports ongoing frustration with world events but states these are not significantly impacting his mood or functioning. Reflects on greater impact of similar events in 2017, but now feels better adjusted or better medicated. Maintains good sleep and activity levels, including a recent long motorcycle trip. Medication regimen includes carbamazepine nightly and as-needed quetiapine for occasional jitteriness. - Continue carbamazepine 200 mg at night with an extra 100 mg tablet. - Refill prescriptions for 90 days with a refill. - Schedule follow-up appointment in early September. 10/30/2024 Vitamin D deficiency (ICD-10 - E55.9) 10/30/2024 Chronic fatigue (ICD-10 - R53.82) 04/16/2025 Vitamin D deficiency (ICD-10 - E55.9) 07/31/2024 Chronic fatigue (ICD-10 - R53.82) Bipolar [...] experienced an issue with carbamazepine prescription at [facility] but has since resolved it. [...] to contact the doctor first for accommodation. 04/16/2025 Vitamin deficiency (ICD-10 - E56.9) 10/30/2024 Essential (primary) hypertension (ICD-10 - I10) [...] experienced an issue with carbamazepine prescription at [facility] but has since resolved it. [...] to contact the doctor first for accommodation. 04/16/2025 Chronic fatigue (ICD-10 - R53.82) 04/16/2025 Essential (primary) hypertension (ICD-10 - I10) 10/30/2024 [...] progress and adjust treatment plan if necessary. 04/16/2025 Other Problem-Based Assessment and Plan Nicholas Walsh, a patient with a history of bipolar disorder, presents for follow-up with stable mood and no current manic or major depressive symptoms. Bipolar Disorder Assessment: Patient reports current mood stability with no manic or major depressive symptoms. He describes being frustrated by everything but is coping better compared to a previous episode in 2017. Sleep is reported as pretty well. No current signs of lillian, such as reckless driving, which the patient identifies as a past manic symptom. The patient's current medication regimen appears to be effective in maintaining mood stability. Plan: - Continue carbamazepine 200 mg PO at night with an additional 100 mg tablet - Continue quetiapine 25 mg PO as needed for agitation - Patient reports using approximately 5 tablets per year, typically at quarter to half tablet doses - Maintain current prescription of quetiapine with refills available for up to one year - Schedule follow-up appointment in early September, as patient identifies this as a potentially risky time of year - Patient advised to call if needed before scheduled follow-up - Renew prescription for 90 days with refills Disclaimer: This note has been transcribed using speech recognition software and serves as a reflection of the patient's visit. While efforts have been made to ensure accuracy, there may be errors, including contract technician inaccuracies and misspellings of medication names. This document should not be considered a verbatim record, and any discrepancies should be verified with the provider. Plan Of Treatment Next Appt Details Provider Name:Geovanny Russ , 10/01/2025 08:45:00 AM, [facility] [facility] [address] [facility] [address], [address], Insurance Providers Payer Name Payer Address Payer Phone Subscriber Number Group Number Insured Name Patient Relationship to Insured Coverage Start Date Coverage End Date [facility] [address] [place] [address] [id number] NICHOLAS WALSH Self - patient is the insured Medical (General) History Medical History History ICD Code Problems: Bipolar type I disorder tita fields in full remission Obstructive sleep apnea syndrome , Bipolar disorder, currently in remission Surgical History Surgery Date(Month/Year) Appendectomy (15201) 12/26/1970
== END 2025-05-09 14:24 | disposition home or self-care (01) ==
PROVIDERS: PCP Internal Medicine; Visit Provider Internal Medicine
DX: M25.521 Pain in right elbow (principal)
CPT/HCPCS: 73080